=== PATIENT | male | born 1935 | race Caucasian/White ===

== ENCOUNTER 2017-04-29 17:32 | Emergency (ER) | payer MEDICARE, BC ==
[2017-04-29] MEDS ORDERED: NS 0.9% 1000 ML* 1,000 ML IV ONE (17:50)
[2017-04-29] MEDS ORDERED: Metoprolol Tartrate IV* 1 MG/ML 5 ML VIAL IV ONE (17:50)
[2017-04-29 18:06] LABS: Hematocrit 48 % (42-52); Hemoglobin 15.8 g/dl (14.0-18.0); Mean Corpuscular HGB Conc 33 g/dl (31-36); Mean Corpuscular Hemoglobin 29 pg (27-31); Mean Corpuscular Volume 90 fL (80-94); Mean Platelet Volume 9 um3 (7.4-10.4); Red Blood Count 5.38 10^6/ul (4.0-5.4); Red Cell Distribution Width 14 % (10.5-15); White Blood Count 6.5 10^3/ul (3.5-10.8)
[2017-04-29 18:22] LABS: Albumin 4.2 g/dL (3.2-5.2); BUN/Creatinine Ratio 19.3 (8-20); Calcium 9.4 mg/dL (8.6-10.3); EGFR African American 113.8 (>60); EGFR Non-African American 88.5 (>60); Globulin 2.7 g/dL (2-4); Magnesium 1.8 mg/dL (1.9-2.7); Potassium 4.2 mmol/L (3.5-5.0); Total Bilirubin 0.6 mg/dL (0.2-1.0); Total Protein 6.9 g/dL (6.4-8.9)
[2017-04-29 19:12] LABS: TSH (Thyroid Stimulating Horm) 0.95 mcIU/mL (0.34-5.60)
[2017-04-29] MEDS ORDERED: Adenosine* 3 MG/ML VIAL IV PUSH ONE (19:41)
--- NOTE | 2017-04-29 21:39 | ED ---
Ana Paula De La Cruz Thomas, scribed for Alex Rubio MD on 04/29/17 at 1747 . Palpitations / Dysrhythmia - HPI Summary HPI Summary: The pt is an 81 y/o M referred to the ED from his PCP Dr. Houston after testing at his office showed junctional tachycardia. Dr. Houston advised the patient to present to the ED after his vital signs and an EKG were taken. His HR was [address] Simmons office, and in the ED the pts HR is 133. The patient also complains of palpitations characterized as fluttering and jumping. He has been on metoprolol for several years. 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 The patient saw Lanre four days ago, who reduced his daily metoprolol dosage from 200mg to 150mg. Pt additionally c/o a queasy feeling. Pt denies any pains. PMHx: DM, HTN. PSHx: quadruple bypass (1996). SHx: rare drinking, no smoking, no illicit drugs. FHx: NM. Prior to arrival of the patient, I received a call from Dr. Houston regarding his incoming patient. - History of Current Complaint Chief Complaint: EDDysrhythmPalp Time Seen by Provider: 04/29/17 17:40 Hx Obtained From: Patient Onset/Duration: Sudden Onset, Lasting Hours - vitals and EKG were taken at Dr. Houston's office at 15:30, Still Present Character: Fluttering Aggravating: Nothing Alleviating: Nothing Related History: Similar Episode/Dx as - past episodes, unspecified - Allergy/Home Medications Allergies/Adverse Reactions: Allergies Allergy/AdvReac Type Severity Reaction Status Date / Time Codeine Allergy Tachycardia Verified 04/29/17 17:34 Latex Allergy Hives Verified 05/25/16 09:14 Pseudoephedrine Allergy Palpitation Verified 05/25/16 09:14 [From [facility]] s Home Medications: Home Medications Aspirin TAB* [Aspirin 325 MG TAB*] 325 mg PO DAILY 04/29/17 [History Confirmed 04/29/17] LoraTADine TAB(NF) [Claritin 10 MG TAB(NF)] 10 mg PO DAILY 04/29/17 [History Confirmed 04/29/17] Metoprolol Succinate XL TAB* [Toprol XL TAB*] 100 mg PO DAILY 04/29/17 [History Confirmed 04/29/17] Multivitamins ADULT w/MIN LIQ* [Theragran w/MINERALS LIQ*] 5 ml PO DAILY [History Confirmed 04/29/17] Moville-3 Fatty Acids (Nf) [Fish Oil (NF)] 1,000 mg PO DAILY 04/29/17 [History Confirmed 04/29/17] Ramipril CAP* [Altace CAP*] 2.5 mg PO BID 04/29/17 [History Confirmed 04/29/17] Simvastatin (NF) [Zocor (NF)] 40 mg PO DAILY 04/29/17 [History Confirmed ] PMH/Surg Hx/FS Hx/Imm Hx Previously Healthy: No Endocrine/Hematology History: Reports: Hx Diabetes Cardiovascular History: Reports: Hx Hypertension Denies: Hx Pacemaker/ICD History: Denies: Hx Renal Disease Musculoskeletal History: Denies: Hx Rheumatoid Arthritis - NEG BLOOD TEST Sensory History: Denies: Hx Hearing Aid Psychiatric History: Denies: Hx Panic Disorder - Cancer History Cancer Type, 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 CATARACT -[facility] Infectious Disease History: Denies: Traveled Outside the [place] in Last 30 Days - Family History Known Family History: Positive: Other - POS: [place] - Social History Alcohol Use: Rare Hx Substance Use: No Substance Use Type: Reports: None Hx Tobacco Use: No Smoking Status (MU): Never Smoked Tobacco Review of Systems Negative: Fever Positive: Palpitations - characterized as fluttering and jumping, Other - POS: junctional tachycardia (measured at Dr. Houston's office Negative: Other - NEG: any pain Positive: Other - POS: "queasy feeling" All Other Systems Reviewed And Are Negative: Yes Physical Exam Triage Information Reviewed: Yes Vital Signs On Initial Exam: Initial Vitals Temp Pulse Resp BP Pulse Ox 97.8 F 132 18 134/78 99 04/29/17 17:34 04/29/17 17:34 04/29/17 17:34 04/29/17 17:34 04/29/17 17:34 Vital Signs Reviewed: Yes Appearance: Positive: Well-Appearing, No Pain Distress Skin: Positive: Warm, Skin Color Reflects Adequate Perfusion Head/Face: Positive: Normal Head/Face Inspection Eyes: Positive: Normal ENT: Positive: Normal ENT inspection Neck: Positive: Supple, Nontender Respiratory/Lung Sounds: Positive: Clear to Auscultation, Breath Sounds Present Cardiovascular: Positive: Tachycardia Abdomen Description: Positive: Nontender, Soft Bowel Sounds: Positive: Present Musculoskeletal: Positive: Normal Neurological: Positive: Normal Psychiatric: Positive: Affect/Mood Appropriate Diagnostics - Vital Signs Vital Signs Temp Pulse Resp BP Pulse Ox 04/29/17 17:34 97.8 F 132 18 134/78 99 - Laboratory Lab Results: Lab Results 04/29/17 04/29/17 04/29/17 Range/Units 17:55 17:55 17:55 WBC 6.5 (3.5-10.8) 10^3/ul RBC 5.38 (4.0-5.4) 10^6/ul Hgb 15.8 (14.0-18.0) g/dl Hct 48 (42-52) % MCV 90 (80-94) fL MCH 29 (27-31) pg MCHC 33 (31-36) g/dl RDW 14 (10.5-15) % Plt Count 147 L (150-450) 10^3/ul MPV 9 (7.4-10.4) um3 Neut % (Auto) 39.7 (38-83) % Lymph % (Auto) 47.4 H (25-47) % [place] % (Auto) 9.0 (1-9) % Eos % (Auto) 3.8 (0-6) % Baso % (Auto) 0.1 (0-2) % Absolute Neuts (auto) 2.6 (1.5-7.7) 10^3/ul Absolute Lymphs (auto) 3.1 (1.0-4.8) 10^3/ul Absolute Monos (auto) 0.6 (0-0.8) 10^3/ul Absolute Eos (auto) 0.2 (0-0.6) 10^3/ul Absolute Basos (auto) 0 (0-0.2) 10^3/ul Absolute Nucleated RBC 0.01 10^3/ul Nucleated RBC % 0.2 INR (Anticoag Therapy) 0.97 (0.89-1.11) Sodium 126 L (133-145) mmol/L Potassium 4.2 (3.5-5.0) mmol/L Chloride 95 L (101-111) mmol/L Carbon Dioxide 25 (22-32) mmol/L Anion Gap 6 (2-11) mmol/L BUN 16 (6-24) mg/dL Creatinine 0.83 (0.67-1.17) mg/dL Est GFR ( Amer) 113.8 (>60) Est GFR (Non-Af Amer) 88.5 (>60) BUN/Creatinine Ratio 19.3 (8-20) Glucose 122 H (70-100) mg/dL Lactic Acid (0.5-2.0) mmol/L Calcium 9.4 (8.6-10.3) mg/dL Magnesium 1.8 L (1.9-2.7) mg/dL Total Bilirubin 0.60 (0.2-1.0) mg/dL AST 22 (13-39) U/L ALT 20 (7-52) U/L Alkaline Phosphatase 55 (34-104) U/L Troponin I 0.00 (<0.04) ng/mL Total Protein 6.9 (6.4-8.9) g/dL Albumin 4.2 (3.2-5.2) g/dL Globulin 2.7 (2-4) g/dL Albumin/Globulin Ratio 1.6 (1-3) TSH 0.95 (0.34-5.60) mcIU/mL 04/29/17 Range/Units 17:55 WBC (3.5-10.8) 10^3/ul RBC (4.0-5.4) 10^6/ul Hgb (14.0-18.0) g/dl Hct (42-52) % MCV (80-94) fL MCH (27-31) pg MCHC (31-36) g/dl RDW (10.5-15) % Plt Count (150-450) 10^3/ul MPV (7.4-10.4) um3 Neut % (Auto) (38-83) % Lymph % (Auto) (25-47) % [place] % (Auto) (1-9) % Eos % (Auto) (0-6) % Baso % (Auto) (0-2) % Absolute Neuts (auto) (1.5-7.7) 10^3/ul Absolute Lymphs (auto) (1.0-4.8) 10^3/ul Absolute Monos (auto) (0-0.8) 10^3/ul Absolute Eos (auto) (0-0.6) 10^3/ul Absolute Basos (auto) (0-0.2) 10^3/ul Absolute Nucleated RBC 10^3/ul Nucleated RBC % INR (Anticoag Therapy) (0.89-1.11) Sodium (133-145) mmol/L Potassium (3.5-5.0) mmol/L Chloride (101-111) mmol/L Carbon Dioxide (22-32) mmol/L Anion Gap (2-11) mmol/L BUN (6-24) mg/dL Creatinine (0.67-1.17) mg/dL Est GFR ( Amer) (>60) Est GFR (Non-Af Amer) (>60) BUN/Creatinine Ratio (8-20) Glucose (70-100) mg/dL Lactic Acid 1.1 (0.5-2.0) mmol/L Calcium (8.6-10.3) mg/dL Magnesium (1.9-2.7) mg/dL Total Bilirubin (0.2-1.0) mg/dL AST (13-39) U/L ALT (7-52) U/L Alkaline Phosphatase (34-104) U/L Troponin I (<0.04) ng/mL Total Protein (6.4-8.9) g/dL Albumin (3.2-5.2) g/dL Globulin (2-4) g/dL Albumin/Globulin Ratio (1-3) TSH (0.34-5.60) mcIU/mL Result Diagrams: 04/29/17 17:55 04/29/17 17:55 Lab Statement: Any lab studies that have been ordered have been reviewed, and results considered in the medical decision making process. - EKG 17:43 Cardiac Rate: Tachycardia - 127 BPM EKG Interpretation: 127 BPM. Junctional tachycardia. Nonspecific diffuse ST T- Wave changes. 19:58 Cardiac Rate: NL - 78 BPM EKG Interpretation: NSR. First degree block. Nonspecific changes consistent with 02/08/12. Course/Dx - Course Course Of Treatment: Mr. Culver was sent over by Dr. Houston for SVT that was relatively asymptomatic. His metoprolol had recently been cut back from 100 BID to 100 AM and 50 PM. He was hydrated and given 5 of IV lopressor and then adenocard which converted him to NSR with a 1st degree block. I am watching him a bit and will let him go if he remains in sinus. I recommended that he go back to 100 mgs BID and F/U with Dr. Patel. - Diagnoses Provider Diagnoses: SVT (supraventricular tachycardia) Discharge - Discharge Plan Condition: Stable Disposition: HOME Patient Education Materials: Supraventricular Tachycardia (ED) Referrals: Lalo De Dios MD [Medical Doctor] - 3 Days Additional Instructions: Follow up with Dr. De Dios. Go back to taking Metoprolol 100mg BID. The documentation as recorded by the Ana Paula valle Thomas accurately reflects the service I personally performed and the decisions made by me, Alex Rubio MD.
[2017-04-29 21:56] VITALS: BP 98/69
== END 2017-04-29 22:02 | disposition home or self-care (01) ==
LOC: ED 17:32
DX: I47.1 Supraventricular tachycardia (principal); R00.2 Palpitations
CPT/HCPCS: 36415; 80053; 83605; 83735; 84443; 84484; 85025; 85610; 93005; 96374; 96375; 99285; A9270-GY; J0153

== ENCOUNTER 2017-08-15 13:57 | Observation (INO) | payer MEDICARE, BC ==
[2017-08-15] MEDS ORDERED: ceFAZolin 1 GM VIAL(*) 1 GM in NS 0.9% 50 ML* 50 ML IVPB ONE (14:45)
[2017-08-15] MEDS ORDERED: ceFAZolin 2 GM PREMIX (*) 2 GM/50 ML BAG IVPB ONE (14:45)
[2017-08-15] MEDS ORDERED: Diazepam TAB(*) 5 MG PO ONE (14:45)
[2017-08-15] MEDS ORDERED: ceFAZolin VIAL 1 GM in NS *SYRINGE * * 10 ML ONE (15:00)
[2017-08-15] MEDS ORDERED: Naloxone* 0.4 MG/ML 1 ML VIAL ONE (15:17)
[2017-08-15] MEDS ORDERED: Midazolam* 1 MG/ML 5 ML VIAL (5 MG) ONE (15:17)
[2017-08-15] MEDS ORDERED: Flumazenil* 0.1 MG/ML 5 ML MDV ONE (15:17)
[2017-08-15] MEDS ORDERED: fentaNYL* 50 MCG/ML 2 ML VIAL (100 MCG VIAL) ONE (15:17)
[2017-08-15] MEDS ORDERED: Lidocaine 1% INJ* 10 MG/ML 30 ML SDV ONE (15:33)
[2017-08-15] MEDS ORDERED: Zolpidem TAB* 5 MG PO PRN (16:46)
--- NOTE | 2017-08-15 17:35 | RAD ---
INDICATION: Status post left upper chest cardiac pacemaker installation COMPARISON: Most recent comparison chest x-rays dated December 09, 2011 TECHNIQUE: Single AP portable view of the chest was obtained. FINDINGS: Image quality is compromised due to the relative inferiority of a portable chest x-ray. There is been interval placement of a left upper chest cardiac pacemaker with 2 leads overlying the heart. Surgical skin neri are seen overlying the pacemaker. Postoperative findings also include sternotomy wires. The heart and mediastinum exhibit normal size and contour. The lungs are grossly clear. There is no large pneumothorax. Visualized bones are normal for the patient's age. IMPRESSION: No radiographic evidence for acute cardiopulmonary abnormality on this portable chest x-ray status post cardiac pacemaker placement.
[2017-08-15] MEDS: Metoprolol Succinate XL TAB* 100 MG PO SCH (18:21)
[2017-08-15] MEDS: NS 0.9% 1000 ML* 1,000 ML IV SCH (18:21)
[2017-08-15] MEDS: Ramipril CAP* 2.5 MG PO SCH (21:49)
[2017-08-15] MEDS: Acetaminophen TAB* 325 MG PO PRN (21:49)
[2017-08-15] MEDS: ceFAZolin 1 GM VIAL(*) 1 GM in NS 0.9% 50 ML* 50 ML IVPB SCH (23:34)
[2017-08-16] MEDS ORDERED: CMCS Melatonin (NF) 3 MG TAB PO PRN (00:49)
[2017-08-16] MEDS: Acetaminophen TAB* 325 MG PO PRN (03:20)
[2017-08-16 07:00] VITALS: BP 108/44
[2017-08-16] MEDS: ceFAZolin 1 GM VIAL(*) 1 GM in NS 0.9% 50 ML* 50 ML IVPB SCH (07:30)
[2017-08-16] MEDS: Ramipril CAP* 2.5 MG PO SCH (07:31)
[2017-08-16] MEDS: Metoprolol Succinate XL TAB* 100 MG PO SCH (07:31)
--- NOTE | 2017-08-16 08:26 | RAD ---
HISTORY: Pacemaker placement COMPARISONS: August 15, 2017 VIEWS: 4: Frontal dual-energy and lateral views of the chest. FINDINGS: CARDIOMEDIASTINAL SILHOUETTE: The cardiomediastinal silhouette is normal. FRED: The fred are normal. PLEURA: The costophrenic angles are sharp. No pleural abnormalities are noted. LUNG PARENCHYMA: The lungs are clear. ABDOMEN: The upper abdomen is clear. There is no subphrenic gas. BONES AND SOFT TISSUES: The patient is status post median sternotomy. OTHER: A left-sided pacemaker is noted. IMPRESSION: NO ACTIVE CARDIOPULMONARY DISEASE.
[2017-08-16] MEDS ORDERED: Aspirin TAB* 325 MG PO SCH (09:00)
[2017-08-16] MEDS ORDERED: Atorvastatin* 20 MG TAB PO SCH (09:00)
[2017-08-16] MEDS: NS 0.9% 1000 ML* 1,000 ML IV SCH (10:16)
--- NOTE | 2017-08-16 22:21 | OP ---
DATE OF OPERATION: 08/15/17 - ROOM #452 DATE OF : 31 SURGEON: Henok Gage MD ANESTHESIA: Local anesthesia with conscious sedation. PRE-OP DIAGNOSIS: Tachybrady syndrome, 7-second pause. POST-OP DIAGNOSIS: Tachybrady syndrome, 7-second pause. OPERATIVE PROCEDURE: Dual-chamber pacemaker implantation. INDICATIONS: The patient is an 81-year-old gentleman with a history of supraventricular tachycardia and atrial tachy-cardia. The patient has undergone ablation therapy within the last couple of months. He was off all of his beta blockers. He had a Holter monitor, which showed episodes of tachycardia up to 140 beats per minute as well as 7-second pause. 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 ESTIMATED BLOOD LOSS: Nil. COMPLICATIONS: None. DESCRIPTION OF PROCEDURE: The patient was brought to the procedure room in a fasting state. Informed consent had been obtained prior to the procedure. All labs have been reviewed. The patient was placed supine on the procedure table. His left deltopectoral area was cleaned and draped in the usual fashion. 1% lidocaine was used for local anesthesia. Under ultrasound guidance, the axillary vein was entered by a modified Seldinger technique and a guidewire was placed. A second guidewire was placed under the same technique. A 3-cm incision was made in the pectoral area, blunt dissection was carried down to the pectoral fascia. A pocket was fashioned for the pacemaker. Over the first guidewire, a 7-Grenadian sheath introducer was placed through which a right ventricular lead was advanced to the RV apex. The right ventricular lead was a Medtronic, model 5076, serial #[id number] that had an R-wave sensitivity of 9.3 , impedance 1063 ohms, threshold 0.5 volts at 0.5 milliseconds. The ventricular lead was then sutured to the pectoral fascia using 0 silk. Over the second guidewire, a 7-Grenadian sheath introducer was placed through which a right atrial lead was advanced to the high right atrium. The right atrial lead was a Medtronic model 5076, serial #[id number], had a P-wave sensitivity of 2.3 , impedance 650 ohms, threshold 1.9 volts at 0.5 milliseconds (at the end of the case, the atrial threshold was 1 volt at 0.5 milliseconds). The atrial lead was then sutured to the pectoral fascia using 0 silk. The pocket was flushed with antibiotic-infused normal saline. A generator was attached appropriately to the atrial and ventricular lead. The generator was a Antavo model A2DR01, serial #[id number]. The device was placed into the pocket. The surgical incision was closed in 3 layers. The patient tolerated the procedure well, no complications. [id number]/[facility] #: [id number] [facility] MEDICAL CENTERIsabella
--- NOTE | 2017-08-17 00:01 | DS ---
CC: Lalo De Dios MD; Madhu Houston MD * DISCHARGE SUMMARY: DATE OF ADMISSION: 08/15/17 DATE OF DISCHARGE: 08/16/17 INDICATION FOR ADMISSION: Dual chamber pacemaker implantation. Please see dictated admission history and physical from SHYLA Gunderson. HISTORY OF PRESENT ILLNESS: The patient is an 81-year-old gentleman with a history of coronary artery disease, coronary artery bypass surgery in 1995. At that time, he had a single vessel bypass to his LAD as well as stenting to his right coronary artery. He also has a history of atrial tachycardia and SVT. He underwent ablation of his SVT back in June. The patient was still feeling episodes of palpitations and lightheadedness. A Holter monitor showed episodes of tachycardia up to 140 beats a minute as well as a 7-second pause. Sick sinus syndrome was diagnosed and pacemaker was recommended. SUMMARY OF HOSPITAL COURSE: The patient underwent dual chamber pacemaker implantation without incident. This occurred yesterday afternoon. He has a Medtronic model A2DR01 dual chamber pacemaker. The patient was observed overnight. The patient had no complications overnight. His chest x-ray this morning was stable. Interrogation of his ICD demonstrates atrial and ventricular leads are functioning normally. PHYSICAL EXAMINATION: On physical exam, lungs are clear to auscultation. Cardiac exam: S1 and S2 without any murmurs, rubs, or gallops. Extremities show no edema. His pacemaker site is healing well. There is no other erythema. There is no hematoma. There is no ecchymosis. A new dressing was applied. LABORATORY DATA: Laboratory studies were unremarkable. Again, chest x-ray showed normal placement of the dual chamber pacemaker. No evidence of pneumothorax. DISCHARGE MEDICATIONS: 1. Metoprolol ER 100 mg a day, this will be restarted at his usual dose. 2. Simvastatin 40 mg a day. 3. Ramipril 2.5 mg b.i.d. 4. Fish oil tablets. 5. Multivitamin a day. 6. Hydroxychloroquine 200 mg b.i.d. 7. Omeprazole 20 mg a day. 8. Aspirin 81 mg a day. 9. Calcium carbonate/vitamin D 600/400 daily. 10. Loratadine 10 mg as needed. ALLERGIES: He has no allergies. PLAN: The patient will be started on Keflex 250 mg 3 times a day for 3 days. FOLLOWUP: The patient will follow up with me in 1 week for wound check and then continue to follow up with Dr. De Dios. [id number]/[facility] #: [id number] JACQUELINE
== END 2017-08-16 14:00 | disposition home or self-care (01) ==
LOC: CHICATH 13:57 → MEDTELE 16:31
PROVIDERS: ADMIT Specialist; ATTEND Specialist
DX: I49.5 Sick sinus syndrome (principal); I25.10 Atherosclerotic heart disease of native coronary artery without angina pectoris; Z95.1 Presence of aortocoronary bypass graft; I10 Essential (primary) hypertension; E78.5 Hyperlipidemia, unspecified
CPT/HCPCS: 33208; 71010; 71020; 93005; 99156; 99157; A9270-GY; C1785; C1898; G0378; J0690; J2250; J2310; J3010

== ENCOUNTER 2019-04-06 21:58 | Emergency (ER) | payer MEDICARE, BC ==
--- NOTE | 2019-04-06 22:41 | ED ---
Lower Extremity - HPI Summary HPI Summary: This patient is a 83 year old female presenting to [facility] with a chief complaint of traumatic left foot pain an hour ago. He states he was moving his computer when the monitor accidentally fell from the desk landing on the top of his left foot. He also notes left knee pain which he did not initially notice. He states there is bruising and swelling on the area. He rates his pain 4/10 in severity. - History of Current Complaint Chief Complaint: EDExtremityLower Stated Complaint: LT FT INJURY PER PT Time Seen by Provider: 04/06/19 22:35 Hx Obtained From: Patient Mechanism Of Injury: Direct Blow Pain Intensity: 4 Pain Scale Used: 0-10 Numeric Timing: Constant Location: Is Discrete @ - left foot Associated Signs And Symptoms: Positive: Swelling, Bruising, Knee Pain - Allergies/Home Medications Allergies/Adverse Reactions: Allergies Allergy/AdvReac Type Severity Reaction Status Date / Time codeine Allergy Tachycardia Verified 04/06/19 22:06 latex Allergy Hives Verified 04/06/19 22:06 pseudoephedrine Allergy Palpitation Verified 04/06/19 22:06 s Home Medications: Home Medications Aspirin 81 mg PO DAILY 04/06/19 [History Confirmed 04/06/19] Hydroxychloroquine TAB* [Plaquenil TAB*] 200 mg PO DAILY 04/06/19 [History Confirmed 04/06/19] PMH/Surg Hx/FS Hx/Imm Hx Endocrine/Hematology History: Reports: Hx Diabetes Cardiovascular History: Reports: Hx Hypertension Denies: Hx Angina, Hx Coronary Artery Disease, Hx Pacemaker/ICD, Hx Valvular Heart Disease Respiratory History: Denies: Hx Asthma, Hx Chronic Obstructive Pulmonary Disease (COPD) History: Denies: Hx Renal Disease Musculoskeletal History: Denies: Hx Rheumatoid Arthritis - NEG BLOOD TEST, Hx Osteoporosis Sensory History: Reports: Hx Cataracts, Hx Contacts or Glasses Denies: Hx Hearing Aid Opthamlomology History: Reports: Hx Cataracts, Hx Contacts or Glasses Psychiatric History: Denies: Hx Panic Disorder - Cancer History Cancer Type, 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 CATARACT -[facility]. PACEMAKER. CARDIAC ABLATION 2017 Infectious Disease History: No Infectious Disease History: Denies: Traveled Outside the [place] in Last 30 Days - Family History Known Family History: Positive: Other - POS: [place] - Social History Alcohol Use: None Hx Substance Use: No Substance Use Type: Reports: None Hx Tobacco Use: No Smoking Status (MU): Never Smoked Tobacco Review of Systems Negative: Fever Positive: Other - Left foot knee pain, ecchymosis, swelling. All Other Systems Reviewed And Are Negative: Yes Physical Exam - Summary Physical Exam Summary: Appearance: Well-appearing, Well-nourished, lying in bed comfortable Skin: Warm, dry, no obvious rash Eyes: sclera anicteric, no conjunctival pallor ENT: mucous membranes moist Neck: deferred Respiratory: No signs of respiratory distress Cardiovascular: Appears well perfused, pulses are nml Abdomen: deferred Musculoskeletal: Moving all 4 extremities without obvious discomfort. Ecchymosis overlying the left thigh above the knee. Ecchymosis and swelling over the first left metatarsal with tenderness. Neurological: Awake and alert, mentation is normal, speech is fluent and appropriate Psychiatric: affect is normal, does not appear anxious or depressed Triage Information Reviewed: Yes Vital Signs On Initial Exam: Initial Vitals Temp Pulse Resp BP Pulse Ox 97.9 F 73 18 149/72 97 04/06/19 22:00 04/06/19 22:00 04/06/19 22:00 04/06/19 22:00 04/06/19 22:00 Vital Signs Reviewed: Yes Diagnostics - Vital Signs Vital Signs Temp Pulse Resp BP Pulse Ox 04/06/19 22:00 97.9 F 73 18 149/72 97 - Laboratory Lab Statement: Any lab studies that have been ordered have been reviewed, and results considered in the medical decision making process. - Radiology Left Foot XR Radiology Interpretation Completed By: ED Physician Summary of Radiographic Findings: No fractures. Pending official radiologist report. Lower Extremity Course/Dx - Course Course Of Treatment: This patient is a 83 year old female presenting to [facility] with a chief complaint of traumatic left foot pain. Left foot XR was unremarkable. A plan for discharge was discussed with the patient and he was agreeable with this plan. - Diagnoses Provider Diagnoses: Foot contusion Discharge - Sign-Out/Discharge Documenting (check all that apply): Patient Departure - Discharge Patient Received Moderate/Deep Sedation with Procedure: No - Discharge Plan Condition: Good Disposition: HOME Patient Education Materials: Foot Contusion (ED) Referrals: Madhu Houston MD [Primary Care Provider] - If Needed - Billing Disposition and Condition Condition: GOOD Disposition: Home - Attestation Statements Document Initiated by Ryley: Yes Documenting Scribe: Donnie Larsen Provider For Whom Ryley is Documenting (Include Credential): Alex Klein MD Scribe Attestation: Donnie De La Cruz scribed for Alex Klein MD on 04/07/19 at 0433. Scribe Documentation Reviewed: Yes Provider Attestation: The documentation as recorded by the Donnie valle accurately reflects the service I personally performed and the decisions made by me, Alex Klein MD Status of Scribe Document: Viewed
[2019-04-06 23:55] VITALS: BP 129/61
== END 2019-04-06 23:54 | disposition home or self-care (01) ==
LOC: ED 21:58
DX: S90.32XA Contusion of left foot, initial encounter (principal); R60.0 Localized edema; M25.569 Pain in unspecified knee; E11.9 Type 2 diabetes mellitus without complications; W20.8XXA Other cause of strike by thrown, projected or falling object, initial encounter; Y92.9 Unspecified place or not applicable; Z79.82 Long term (current) use of aspirin
CPT/HCPCS: 99282

== ENCOUNTER 2019-11-27 07:27 | Inpatient (IN) | payer MEDICARE, BC ==
--- OUTSIDE RECORDS SUMMARY | 2019-11-27 07:36 | XMS REPORT | Continuity of Care Document ---
:1935 External Reference #:[id number] Author Name Lanette Morris M.D. (transmitted by agent of provider Jessica Diego) Address [address] [place] [id number] Care Team Providers Name Role Phone Madhu Houston MD - Endocrinology, Care Team Information Event Services Manager [phone] Diabetes & Metabolism Problems Active Problems Provider Date Multiple joint pain Renato Russell M.D. Onset: 06/12/2013 Chronic lymphoid leukemia, disease Renato Russell M.D. Onset: 06/12/2013 Chronic ischemic heart disease Lalo De Dios M.D., [facility] Onset: 2012 Essential hypertension Lalo De Dios M.D., [facility] Onset: 09/18/2013 Hyperlipidemia Lalo De Dios M.D., [facility] Onset: 09/18/2013 Taking medication Renato Russell M.D. Onset: 05/14/2014 Rheumatoid arthritis Renato Russell M.D. 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 Onset: 11/29/2014 Tachycardia Lalo De Dios M.D., [facility] Onset: 12/25/2014 Degenerative joint disease of hand Renato Russell M.D. Onset: 03/21/2015 Paroxysmal supraventricular Lalo De Dios M.D., [facility] Onset: 05/24/2017 tachycardia Cardiac pacemaker in situ Lalo De Dios M.D., [facility] Onset: 08/24/2017 Dyspnea Lalo De Dios M.D., [facility] Onset: 10/06/2017 Chest pain Lalo De Dios M.D., [facility] Onset: 10/06/2017 Obstructive sleep apnea syndrome Silvana Pereira DNP, RN, Onset: 01/02/2018 SPECIAL NEEDS CAREGIVER- Edema Lalo De Dios M.D., [facility] Onset: 02/13/2018 Arteriosclerosis of coronary artery Lanette Morris M.D. 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 0.025% Pads Nitrostat one sl q5min up 25tabs Lalo De Dios, 01/12/2013 0.4mg Tablets to 3 doses prn, M.DAlejandro, FACC, Sub if no relief FSCAI after 3 call 911 Metoprolol Succinate 1/2 by mouth 180tabs Lalo De Dios, 11/14/2012 ER daily M.SHELLIE JaimesC, 100mg Tablets ER FSCAI 24HR Simvastatin 1 tab by mouth 90tabs Lalo De Dios, 11/14/2012 40mg every day M.DAlejandro, FACC, Tablets FSCAI Ramipril 2 by mouth in 270caps Lanette Morris, 09/07/2012 2.5mg Capsules morning, one by M.D. mouth in evening Calcium 600+D 1 by mouth daily 60tabs Unknown [id number] Tablets Acetaminophen 1 by mouth twice Unknown 500mg a day as needed Capsules Triamcinolone apply thin film Unknown Acetonide twice daily prn 0.1% Cream Loratadine 1 by mouth as Unknown 10mg Tablets needed Aspirin Ec Low Dose 1 / day Unknown 81mg Tablets [place]-3 Fish Oil take 2 tab by Unknown 1000mg mouth daily. Capsules Multi For Him 50+ once a day Unknown Tablets Alendronate Sodium 1 by mouth weekly Unknown 70mg 1 hour before Tablets breakfast with a full glass of water sitting up Medications Administered in Office Medication SIG Qnty Indications Ordering Provider Date Inj, Regadenoson, 0.1 MG Arik Thomson, DO FAC 05/15/2019 Injection Technetium TC 99M Arik Thomson, DO [facility] 05/15/2019 Tetrofosmin, Per Unit Dose Up To 40 Millicuries Injection Technetium TC 99M Arik Thomson, DO [facility] 05/15/2019 Tetrofosmin, Per Unit Dose Up To 40 Millicuries Injection Immunizations CPT Code Status Date Vaccine Lot # [id number] Given 06/27/2017 Influenza Virus Vaccine, Quadrivalent, Split, Preservative Free Vital Signs Date Vital Result Comment 11/13/2019 11:06am Height 66 inches 5'6" Weight 149.00 lb without shoes Heart Rate 75 /min BP Systolic Sitting 110 mmHg LA BP Diastolic Sitting 72 mmHg LA BP Systolic Standing 119 mmHg LA BP Diastolic Standing 70 mmHg LA BMI (Body Mass Index) 24.0 kg/m2 Ejection Fraction 45-50% Echo 06/20/19 07/31/2019 2:40pm Height 66 inches 5'6" Weight 148.00 lb Heart Rate 68 /min BP Systolic 122 mmHg BP Diastolic 72 mmHg O2 % BldC Oximetry 99 % BMI (Body Mass Index) 23.9 kg/m2 Results Description No Information Available Procedures Date Code Description Status 11/13/2019 22859 EKG Tracing & Interpretation Completed 08/08/2019 70642 Icd Eval Sing,Dual,Multi Lead Remote Recpt Transm Tech Completed Rev Tech S 08/08/2019 73744 Icd Eval Sing,Dual,Multi Lead Remote Recpt Transm Tech Completed Rev Tech S 08/08/2019 11457 Pacemaker Check Remote Up To 90Days Completed Single,Dual,Multiple Lead 08/08/2019 90464 Pacemaker Check Remote Up To 90Days Completed Single,Dual,Multiple Lead 06/20/2019 66457 Echocardiogram, Limited Study Completed 05/21/2019 818803392 Diabetic Retinal Eye Exam Completed 05/15/2019 20809 Stress Test Completed 05/15/2019 43351 Myocardial Perfusion Imaging Tomographic (Spect) Completed Multiple Studies 03/28/2019 237160256 Bone Mineral Density Test Completed Medical Devices Description No Information Available Encounters Type Date Location Provider Dx Diagnosis Office Visit 11/13/2019 [facility] Lanette Morris 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 11/13/2019 Z95.0 Presence of cardiac pacemaker Lanette Morris M.D. 11/13/2019 I25.810 Atherosclerosis of coronary artery Lanette Morris M.D. bypass graft(s) without angina pectoris 11/13/2019 I25.5 Ischemic cardiomyopathy Lanette Morris M.D. 11/13/2019 I10 Essential (primary) hypertension Lanette Morris M.D. 11/13/2019 E78.5 Hyperlipidemia, unspecified Lanette Morris M.D. 11/13/2019 I47.1 Supraventricular tachycardia Lanette Morris M.D. 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 08/08/2019 Z95.0 Presence of cardiac pacemaker Remote Device Checks 08/08/2019 I44.0 Atrioventricular block, first degree Lanette Morris M.D. 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 first carpometacarpal jo ann 07/25/2019 D69.6 Thrombocytopenia, unspecified Ceferino Funez M.D. 07/25/2019 Z79.899 Other intermediate frame tender (current) drug Ceferino Funez M.D. therapy 07/25/2019 M51.36 Other intervertebral disc Ceferino Funez M.D. degeneration, lumbar region 06/20/2019 I25.10 Atherosclerotic heart disease of Lanette Morris M.D. [place] coronary artery without angina pectoris 05/22/2019 I25.5 Ischemic cardiomyopathy Mavis Larson NP 05/22/2019 I10 Essential (primary) hypertension Mavis Larson NP 05/22/2019 R94.39 Abnormal result of other Mavis Larson NP cardiovascular function study 05/22/2019 I25.10 Atherosclerotic heart disease of Mavis Larson NP [place] coronary artery without angina pectoris 05/15/2019 R06.00 Dyspnea, unspecified Lanette Morris M.D. 05/15/2019 R06.00 Dyspnea, unspecified Arik Thomson DO [facility] Plan of Treatment Future Appointment(s):08/05/2020 11:15 am - Silvana Pereira DNP, RN, SPECIAL NEEDS CAREGIVER-BC at [facility]01/28/2020 1:00 pm - Ceferino Funez M.D. at [facility]11/13/2019 - Lanette Morris M.D.I49.5 Sick sinus qzbernsoC26.0 Presence of cardiac pacemakerComments:Interrogation 11/06/2019 showed normal function, no sustained rhythm issues.Follow up:Pacer check 6 months with OV or METAL FURNITURE ASSEMBLER.I25.810 Atherosclerosis of coronary artery bypass graft (s) without angina pectorisComments:ECG is stable.I25.5 Ischemic cardiomyopathyComments:Your heart strength is low, no evidence of fluid build up todayContinue Metoprolol and Ramipril.Follow up:Provide patient with information on Entresto (nurses should have in sample cabinet).Recommendations: Entresto is a newer medication we could convert you too (to replace Ramipril) .I10 Essential (primary) hypertensionComments:Well fiwzyorzxrZ86.5 Hyperlipidemia, unspecifiedComments:Good control on Simvastatin.I47.1 Supraventricular tachycardiaComments:None seen, continue metoprolol. Functional Status Description No Information Available Mental Status Description No Information Available Referrals Refer to Reason for Referral Status Appt Date Betzy Brice MD Consider an LAURA and/or facet joint injection for Sent lower back pain with sciatica [address] [place] [phone]
[2019-11-27 07:41] LABS: ABS Basophils 0.1 10^3/ul (0-0.2); ABS Eosinophils 0.1 10^3/ul (0-0.6); ABS Lymphocytes 2.3 10^3/ul (1.0-4.8); ABS Monocytes 0.5 10^3/ul (0-0.8); ABS Neutrophils 2.1 10^3/ul (1.5-7.7); Eosinophil % 2.4 %; Hematocrit 41 % (42-52); Hemoglobin 13.9 g/dL (14.0-18.0); Lymphocyte % 45.6 %; Mean Corpuscular HGB Conc 34 g/dL (31-36); Mean Corpuscular Hemoglobin 31 pg (27-31); Mean Corpuscular Volume 91 fL (80-94); Mean Platelet Volume 8.1 fL (7.4-10.4); Platelet Count 148 10^3/uL (150-450); Red Blood Count 4.55 10^6 /uL (4.18-5.48); Red Cell Distribution Width 14 % (10-15); White Blood Count 5.1 10^3/uL (3.5-10.8)
--- NOTE | 2019-11-27 07:41 | ED ---
HPI Chest Pain - HPI Summary HPI Summary: Patient is an 83 y/o M presenting to the ED via EMS for a chief complaint of chest pain that began at approximately 04:30 on 11/27/19. EMS states the patient 's chest pain began upon waking up and was initially midsternal. Currently, the chest pain is diffuse. The patient rates the initial chest pain as 4/10 in severity, but currently rates his pain as a 2/10 in severity. He took 3 tabs of nitroglycerin and 2 tabs of 325 mg aspirin for the chest pain with some relief. Patient denies shortness of breath. PMHx is significant for AR. He denies that his current chest pain feels similar to his prior AR. PSHx is significant for bypass in 1996 and stent placement. - History of Current Complaint Chief Complaint: EDChestPainROMI Hx Obtained From: Patient, EMS Onset/Duration: Atraumatic, Still Present Time of Onset: 04:30 Timing: Constant Initial Severity: Moderate Current Severity: Mild Pain Intensity: 3 Pain Scale Used: 0-10 Numeric Chest Pain Location: Mid Sternal Chest Pain Radiates: No Aggravating Factor(s): Nothing Alleviating Factor(s): NTG 123, OTC Meds - Aspirin Associated Signs and Symptoms: Positive: Chest Pain. Negative: Shortness of Breath - Additional Pertinent History Primary Care Physician: [id number] - Allergy/Home Medications Allergies/Adverse Reactions: Allergies Allergy/AdvReac Type Severity Reaction Status Date / Time codeine Allergy Tachycardia Verified 11/27/19 07:36 latex Allergy Hives Verified 11/27/19 07:36 pseudoephedrine Allergy Palpitation Verified 11/27/19 07:36 s Home Medications: Home Medications Metoprolol Succinate XL TAB* [Toprol XL TAB*] 50 mg PO DAILY 04/29/17 [History Confirmed 11/27/19] [place]-3 Fatty Acids (Nf) [Fish Oil (NF)] 1,000 mg PO BID 04/29/17 [History Confirmed 11/27/19] Ramipril CAP* [Altace CAP*] 2.5 mg PO BEDTIME 04/29/17 [History Confirmed ] Simvastatin (NF) [Zocor (NF)] 20 mg PO DAILY 04/29/17 [History Confirmed ] Aspirin 81 mg PO DAILY 04/06/19 [History Confirmed 11/27/19] Alendronate (NF) [Fosamax (NF)] 70 mg PO WEEKLY 11/27/19 [History Confirmed 12/13] Calcium Carb, Citrate/Vit D3 [Calcium + D3 ER Tablet] 1 each PO DAILY 11/27/19 [ History Confirmed 11/27/19] Multivitamins/Minerals TAB* [Theragran/minerals TAB*] 1 tab PO DAILY 11/27/19 [ History Confirmed 11/27/19] Nitroglycerin TAB 0.4 MG* 0.4 mg SL Q5M PRN 11/27/19 [History Confirmed 11/27/19 ] Ramipril CAP* [Altace CAP*] 5 mg PO QAM 11/27/19 [History Confirmed 11/27/19] Triamcinolone 0.1% CREAM(NF) [Kenalog 0.1% Cream (NF)] 1 applic TOPICAL BEDTIME PRN 11/27/19 [History Confirmed 11/27/19] PMH/Surg Hx/FS Hx/Imm Hx Previously Healthy: Yes Endocrine/Hematology History: Reports: Hx Diabetes Denies: Hx Thyroid Disease Cardiovascular History: Reports: Hx Hypertension, Hx Myocardial Infarction Denies: Hx Angina, Hx Coronary Artery Disease, Hx Pacemaker/ICD, Hx Valvular Heart Disease Respiratory History: Reports: Hx Sleep Apnea - C Pap Denies: Hx Asthma, Hx Chronic Obstructive Pulmonary Disease (COPD) GI History: Denies: Hx Ulcer History: Denies: Hx Renal Disease Musculoskeletal History: Reports: Hx Arthritis, Hx Back Problems Denies: Hx Rheumatoid Arthritis - NEG BLOOD TEST, Hx Osteoporosis Sensory History: Reports: Hx Cataracts, Hx Contacts or Glasses Denies: Hx Legally Blind, Hx Deafness, Hx Hearing Aid Opthamlomology History: Reports: Hx Cataracts, Hx Contacts or Glasses Denies: Hx Legally Blind EENT History: Denies: Hx Deafness Neurological History: Denies: Hx Migraine, Hx Seizures, Hx Transient Ischemic Attacks (TIA) Psychiatric History: Denies: Hx Anxiety, Hx Depression, Hx Panic Disorder - Cancer History Cancer Type, 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 CATARACT -JAMARI. PACEMAKER. CARDIAC ABLATION 2017 Infectious Disease History: No Infectious Disease History: Denies: Hx Hepatitis, Hx Human Immunodeficiency Virus (HIV), Hx Tuberculosis - Family History Known Family History: Positive: Cardiac Disease, Other - POS: AR - Social History Occupation: Retired Lives: With Family Alcohol Use: None Hx Substance Use: No Substance Use Type: Reports: None Hx Tobacco Use: No Smoking Status (MU): Never Smoked Tobacco Review of Systems Positive: Chest Pain - Midsternal, now diffuse Negative: Shortness Of Breath All Other Systems Reviewed And Are Negative: Yes Physical Exam - Summary Physical Exam Summary: Constitutional: Well-developed, Well-nourished, Alert. (-) Distressed Skin: Warm, Dry HENT: Normocephalic; Atraumatic Eyes: Conjunctiva normal Neck: Musculoskeletal ROM normal neck. (-) JVD, (-) Stridor, (-) Nuchal rigidity Cardio: Rhythm regular, rate normal, Heart sounds normal; Intact distal pulses; Radial pulses are 2+ and symmetric. (-) Murmur Pulmonary/Chest wall: Effort normal. (-) Respiratory distress, (-) Wheezes, (-) Rales Abd: Soft, (-) tenderness, (-) Distension, (-) Guarding, (-) Rebound Musculoskeletal: (-) Edema Lymph: (-) Cervical adenopathy Neuro: Alert, Oriented x3 Psych: Mood and affect Normal Triage Information Reviewed: Yes Vital Signs Reviewed: Yes Procedures - Sedation Patient Received Moderate/Deep Sedation with Procedure: No Diagnostics - Laboratory Result Diagrams: 11/27/19 07:30 11/27/19 07:30 Lab Statement: Any lab studies that have been ordered have been reviewed, and results considered in the medical decision making process. - Radiology Chest X-ray Radiology Interpretation Completed By: Radiologist Summary of Radiographic Findings: Chest X-ray IMPRESSION: NO ACTIVE CARDIOPULMONARY DISEASE. Reviewed by Dr. Hester. - EKG 07:27 Cardiac Rate: NL - 76 BPM EKG Rhythm: Sinus Rhythm ST Segment: Other Ectopy: None EKG Comparison: No Significant Change - From 2017 Summary of EKG Findings: An EKG at 07:27 reveals normal sinus rhythm with 76 BPM , ST elevations in lead II, III, and aVF, ST depression in aVL concerning for inferior STEMI, nml axis, nml intervals. No acute changes. When compared to EKG in 2017, there is no significant change. ED physician has reviewed and interpreted this EKG. Chest Pain Course/Dx - Course Course Of Treatment: 83 y/o male w extensive cardiac history including bypass, multiple stents fall by Dr. De Dios, presenting with chest pain. - VS: initially low BP likely in the setting of recent nitroglycerin. - blood pressure improved in ED, EKG here looks similar to EKG in [address]ations in the inferior leads and depression in aVL. Given lack of EKG changes, STEMI alert was called off. Chest pain improving. Troponin normal 1. Patient received aspirin. [facility] - Diagnoses Provider Diagnoses: Chest pain During the Visit The Following Alert/Code Occurred: STEMI - AT 07:21, STEMI CALLED IN THE ED ROOM 11. ETA IS 3 MINUTES. PATIENT ARRIVAL TO [facility] AT 07:23. DR. HESTER PRESENT TO ASSESS THE PATIENT AT 07:24. AT 07:37, DR.MARCIS SINHA DOES NOT BELIEVE THE PATIENT HAS A STEMI. AT 07:37, STEMI CALL CANCELLED THE PATIENT IS NOT HAVING A STEMI. - Provider Notifications Discussed Care Of Patient With: Ida Sinha - AT 07:37, DR.MARCIS SINHA DOES NOT BELIEVE THE PATIENT HAS A STEMI when comparing EKGs. At 08:44, Dr. Betsy Walker reviewed the patients case and agrees to admit the patient to [facility] with a diagnosis of chest pain. Time Discussed With Above Provider: 07:37 Instructed by Provider To: Admit As Inpatient - Critical Care Time Critical Care Time: 30-74 min - Upon my evaluation, this patient had a high probability of imminent or life-threatening deterioration due to chest pain which required my direct attention, intervention, and personal management. I have personally provided 35 minutes of critical care time exclusive of time spent on separately billable procedures. Time includes review of laboratory data , radiology results, discussion with consultants, and monitoring for potential decompensation. Interventions were performed as documented above. Discharge ED - Sign-Out/Discharge Documenting (check all that apply): Patient Departure - Admit - Discharge Plan Condition: Stable Disposition: ADMITTED TO [facility] - Billing Disposition and Condition Condition: STABLE Disposition: Admitted to [facility] - Attestation Statements Document Initiated by Scribe: Yes Documenting Scribe: Arlen Guzman Provider For Whom Abrahamibe is Documenting (Include Credential): Nicki Hester MD Scribe Attestation: IArlen, scribed for Nicki Hester MD on 11/27/19 at 1411. Scribe Documentation Reviewed: Yes Provider Attestation: The documentation as recorded by the taraeArlen accurately reflects the service I personally performed and the decisions made by , Nicki Hester MD Status of Scribe Document: Viewed
[2019-11-27 07:56] LABS: Activated Partial Thrombo Time 30.2 seconds (26.0-38.0); INR 1.08 (0.82-1.09)
[2019-11-27 07:58] LABS: Albumin 3.8 g/dL (3.2-5.2); Albumin/Globulin Ratio 1.7 (1-3); BUN/Creatinine Ratio 24.1 (8-20); Calcium 9.8 mg/dL (8.6-10.3); EGFR African American 106.5 (>60); EGFR Non-African American 88.1 (>60); Globulin 2.2 g/dL (2-4); Total Bilirubin 0.6 mg/dL (0.2-1.0)
[2019-11-27 08:01] LABS: Troponin I 0.01 ng/mL (<0.03)
[2019-11-27 08:03] LABS: CKMB ng/mL 1.9 ng/mL (0.6-6.3)
[2019-11-27 08:28] LABS: Potassium 4.2 mmol/L (3.5-5.0)
[2019-11-27] MEDS ORDERED: Enoxaparin(*) 40 MG/0.4 ML SYR SUBCUT SCH (11:00)
[2019-11-27 11:09] LABS: Troponin I 0.07 ng/mL (<0.03)
[2019-11-27 12:20] LABS: Magnesium 1.7 mg/dL (1.9-2.7)
[2019-11-27] MEDS ORDERED: Nitro 2% OINT* (Nitroglycerin) 1 INCH/PAK PAK TOPICAL ONE ×3 (12:39→23:30)
--- NOTE | 2019-11-27 14:37 | HP ---
CC: Dr. Houston; Dr. Morris * HISTORY AND PHYSICAL: DATE OF ADMISSION: 11/27/19 PROVIDER: Anushka Landry NP PRIMARY CARE PROVIDER: Dr. Houston. ATTENDING PHYSICIAN WHILE IN THE HOSPITAL: Dr. Betsy Walker * (dictated by Anushka Landry NP). CHIEF COMPLAINT: Chest pain. HISTORY OF PRESENT ILLNESS: Mr. Culver is an 83-year-old male with a past medical history significant for coronary artery disease; cardiomyopathy; history of an ND, status post stent, CABG, and pacemaker; history of hyperlipidemia; hypertension; history of SVT, who presented to the emergency room with complaints of chest pain that radiated to his jaw briefly. The patient reports that he started noticing chest pain approximately 4 a.m. He woke at 4:30 again with the chest pain. He reports that the chest pain was in the center of his chest, it was diffuse, radiated about 4 to 5 inches from the center of his chest. He describes it as a pain. He does report that he became diaphoretic with this chest pain and has some slight shortness of breath. He reports that nothing made it worse. He does report that at home, he took an aspirin total of 650 mg. He did take nitro 0.4 sublingual x3. He reports there is no change in his chest pain after the first 2 nitro. On the third nitro, he does report that his pain went from a 4-5 to 2 to 3. Due to this chest pain, the patient called EMS and was brought into the emergency room via EMS. The patient was initially a STEMI alert. He was seen in the emergency room by Dr. Sandoval and EKGs were compared and the patient had no acute changes in his EKG from prior, so STEMI was cancelled. While in the emergency room, the patient had routine lab work drawn. His initial troponin was negative at 0.01 and his chest pain fully dissipated during the emergency room. At the time of my evaluation, the patient does report that his chest pain is essentially at a 1 and he reports it is going away. The patient does report that his shortness of breath has resolved. He denies any recent fevers, unintended weight loss. He does report chest pain. No swelling or edema noted to extremities. No cough or hemoptysis. He does report some slight shortness of breath associated with his chest pain. No nausea, vomiting, diarrhea, abdominal pain, hematuria, dysuria. He denies any focal weakness or sensory loss. He denies any visual complaints, dysphagia, arthralgias, myalgias, rashes, lesions, open sores, psychosis, or anxiety. Due to the patient's chest pain and history of coronary artery disease, Hospital Medicine was asked to see and evaluate him for admission. PAST MEDICAL HISTORY: Significant for: 1. Coronary artery disease. 2. Cardiomyopathy. 3. ND, status post stent placement, last in 2010, CABG in 1996. 4. Hyperlipidemia. 5. Hypertension. 6. History of paroxysmal ventricular tachycardia, status post pacemaker for tachybrady syndrome. 7. Cardiomyopathy. PAST SURGICAL HISTORY: 1. Ablation in May 2017. 2. CABG in 1996, status post pacemaker in 2016, status post stent placement in the RCA in 2010. HOME MEDICATIONS: Include: 1. Aspirin 81 mg p.o. daily. 2. Ramipril 5 mg in the morning, 2.5 mg at bedtime. 3. Simvastatin 20 mg p.o. daily. 4. Metoprolol ER 50 mg p.o. daily. 5. Fosamax 70 mg on Sundays. 6. Loratadine 10 mg p.r.n. 7. Nitro sublingual 0.4 mg as needed for chest pain. ALLERGIES: CODEINE, SUDAFED and LATEX. FAMILY HISTORY: Father had an ND. Sister and 2 brothers with heart disease. Brother and sister all with diabetes. No reported history of cancer. SOCIAL HISTORY: He denies any tobacco, but he reports rare alcohol use. No illicit drug use. He is . Surrogate decision maker in the event he is unable to make his own decisions is his . He is a full code. REVIEW OF SYSTEMS: A 14-point review of systems was completed. All pertinent positives were mentioned in the HPI. PHYSICAL EXAMINATION GENERAL: At this time, Mr. Culver is alert and oriented, resting on the stretcher in the emergency room. He is in no acute distress. VITAL SIGNS: Blood pressure 113/56, heart rate 61, respirations are 24, O2 saturation is 99%, temperature was 97. HEENT: Head is atraumatic, normocephalic. Eyes: EOMs are intact. Sclerae anicteric and not pale. Oral mucosa is moist. NECK: Supple. LUNGS: Clear to auscultation bilaterally. No wheezes, rales, or rhonchi. CARDIAC: S1, S2. Regular rate and rhythm. No murmurs, rubs, or gallops. ABDOMEN: Soft and nontender. Bowel sounds are present x4. EXTREMITIES: He is able to move all 4 extremities. There is no clubbing or cyanosis. NEUROLOGIC: He is awake, alert, oriented x3. His speech is clear. Thought process is intact. SKIN: Intact. DIAGNOSTIC STUDIES/LAB DATA: WBCs are 5.1, RBCs 4.55, hemoglobin 13.9, hematocrit is 41, platelet count 148. INR is 1.08, APTT was 30.2. Sodium 133, potassium 4.2, chloride 98, carbon dioxide is 30, anion gap is 5, BUN 20, creatinine 0.83, glucose 111, lactic acid 1, calcium 9.8, magnesium 1.7. Total bilirubin 0.60, ASTs were 20, ALTs 17, alkaline phosphatase was 46. BNP was 142. troponin 0.1. EKG showed sinus rhythm at a rate of 76 with PVCs. He does have ST elevation in lead 2, 3, and aVF and T-wave inversions in V6 and V1. When compared to prior EKGs, is without significant change. Chest x-ray showed no active cardiopulmonary disease. ASSESSMENT AND PLAN: Mr. Culver is an 83-year-old male with a past medical history significant for coronary artery disease, history of myocardial infarction and status post coronary artery bypass grafting and stenting and pacemaker placement, hyperlipidemia, hypertension, history of paroxysmal supraventricular tachycardia, cardiomyopathy, who presented to the emergency room with complaints of midsternal chest pain radiating to his jaw that started approximately between 4 and 4:30 this a.m. He will be admitted under observation for: 1. Chest pain. We will bring him in to rule out acute coronary syndrome. The patient did have chest pain. His initial troponin is 0.01. His repeat troponin is pending. The patient does have a history of coronary artery disease. He did have a nuclear stress test in 05/15/19. At that time, it was determined to be intermediate to high risk stress test due to his history of infarct. when this stress was compared to prior stress of 2018, there were no significant changes according to documentation from 11/14/2019 from cardiology follow up note in [facility]. The patient's most recent transthoracic echocardiogram was also from April 2019. At that time, he had an ejection fraction of 40% to 45% and global hypokinesis noted on the echo. At this time, we will continue to trend his troponins. The patient has had a total of 650 mg of aspirin prior to arrival to the ER. He took nitro 0.4 x3. Currently, chest pain is resolved. Should his chest pain return, we will give him nitro paste to the chest wall. We will continue to trend his troponins. Should his troponins become significantly positive, we will consult Cardiology. I have discussed this case with Dr. Gage from Cardiology, who has recommended that we repeat a nuclear stress test at this time and no need currently for heparin drip. He will continue his metoprolol, simvastatin, and aspirin as previously prescribed. We will monitor him on telemetry as well and he will have an exercise nuclear stress test in the a.m. His HEART score is 7 giving him a MACE of 50% to 65% of adverse cardiac event. Should his troponin continue to elevate should consider starting Lovenox or heparin. 2. History of cardiomyopathy. The patient should continue on aspirin, ramipril , simvastatin, and metoprolol as previously prescribed. 3. Hypertension. He should continue on ramipril as previously prescribed. 4. Hyperlipidemia. He will continue on simvastatin as previously prescribed. 5. FEN: He can have a heart healthy, no caffeine diet. 6. Code status: He is a full code. 7. DVT prophylaxis: I will place him on Lovenox subcu. TIME SPENT: Time spent on this admission was 60 minutes, greater than half that time was spent at the bedside reviewing events leading thus far to his hospitalization, performing physical exam, and reviewing my plan of care. I have discussed this with my attending, Dr. Betsy Walker; she is in agreement with my plan. ANUSHKA EVELINE, [employer] [id number]/[facility] #: [id number] JACQUELINE
[2019-11-27] MEDS ORDERED: Magnesium Sulfate 1 GM IV* 1 GM/100 ML BAG IV ONE (14:41)
[2019-11-27] MEDS ORDERED: Nitro Patch/OINT Remove TOPICAL ONE (19:15)
--- NOTE | 2019-11-27 19:33 | CONS ---
CC: Dr. Madhu Houston; Dr. Lanette Morris * CARDIOLOGY CONSULTATION: DATE OF CONSULT: 11/27/19 INDICATION FOR CONSULTATION: Chest pain. HISTORY OF PRESENT ILLNESS: The patient is an 83-year-old gentleman with a history of coronary artery disease, history of coronary bypass surgery in 1996, history of stenting of his [place] right coronary artery in 2010, history of pacemaker implantation in 2016, who came to emergency room with chest pain. The patient was seen by Dr. Morris on 11/13/19, and had no complaints at that time and did not complain of any episodes of chest pain or shortness of breath. His medications were kept the same. The patient states that he woke at 4 o' clock this morning with a pressure on his chest and pain in his left side of his chest radiating to his left arm and up into his jaw. He rated the pain as 5 out of 10. He took a Tums tablet with some water and a sublingual nitroglycerin. He had a decrease in his discomfort, but did not completely resolve. He took a second sublingual nitroglycerin and had again decrease in his symptoms, but did not completely resolve. At that time, he called 911. On arrival to the emergency room, he was still having some mild pain in his chest, radiating to his left jaw. An initial EKG showed normal sinus rhythm with 1.[address]-segment elevations that appeared to be new. At that time, a STEMI was called. Dr. Sandoval reviewed the EKG and the patient's symptoms and decided not to undergo urgent cardiac catheterization. The patient was admitted to the hospital. The patient has been having the same discomfort, sort of on and off throughout the day. It never reached more than a 2/10 throughout the day. The patient was placed on a nitroglycerin patch, which seemed to relieve the discomfort. The patient was given subcutaneous Lovenox at 40 mg at 11 a.m. PAST MEDICAL HISTORY: Significant for coronary artery disease as described above, ischemic cardiomyopathy, myocardial infarction, hyperlipidemia, hypertension. PAST SURGICAL HISTORY: Coronary artery bypass surgery in 1996, pacemaker implantation in 2016, stent placement in 2010, SVT ablation in 2016. OUTPATIENT MEDICATIONS: 1. Aspirin 81 mg a day. 2. Ramipril 5 mg in the morning, 2.5 mg at night. 3. Simvastatin 20 mg a day. 4. Metoprolol ER 50 mg a day. 5. Fosamax 70 mg once a week. 6. Loratadine 10 mg as needed. ALLERGIES: CODEINE, SUDAFED, and LATEX. FAMILY HISTORY: Father has a history of myocardial infarction. He has a brother and a sister with diabetes. SOCIAL HISTORY: He is retired. He is . He denies tobacco or alcohol use. He tries to get regular exercise. REVIEW OF SYSTEMS: Negative for fever or chills. Negative for changes in bowel or bladder habits. Negative for change in weight. PHYSICAL EXAM: Height is 5 feet 6 inches, weight is 149 pounds, temperature 97.7, heart rate is 66, blood pressure 115/50, respiratory rate is 19 and oxygen saturation 100% on room air. Sclerae anicteric. Oropharynx is pink without erythema. Carotids are 2+ without bruits. JVD is normal. Thyroid is normal. Cardiac Exam: S1, S2 without any murmurs, rubs or gallops. Lungs are clear to auscultation bilaterally. There is no dullness to percussion. Abdomen is soft, nontender, nondistended with normoactive bowel sounds. Extremities show no edema. He has 2+ pulses throughout. The patient is awake, alert, and oriented. He moves all 4 extremities equally. His pacemaker site is normal. DIAGNOSTIC STUDIES/LAB DATA: EKGs as described above. Laboratory studies: CBC within normal limits. Chemistries within normal limits. BUN 20, creatinine 0.8. AST and ALT are normal. BNP is 142. LDL direct is 55. Initial troponin 0.01 and then 0.05 and then 0.2. IMPRESSION AND PLAN: This is an 83-year-old gentleman with a history of known coronary artery disease, who came to the hospital because of anginal-type symptoms. Again, his initial EKG had some concerns about ST-segment elevation, but ultimately did not meet criteria for ST-elevation myocardial infarction. The patient was admitted to the hospital. He was kept on his usual medications. He was given a dose of subcutaneous Lovenox. He was placed on a nitroglycerin patch. Currently, the patient is pain-free. It is my recommendation the patient undergo a chemical nuclear stress test in the morning. The risks and benefits of this were described in detail. Further recommendation is pending results of his stress test. If his troponins go greater than 1.0, I would consider cardiac catheterization. This was discussed with Anushka Landry NP. [id number]/[facility] #: [id number] JACQUELINE
[2019-11-27 20:38] LABS: Troponin I 0.74 ng/mL (<0.03)
[2019-11-27] MEDS ORDERED: Ramipril CAP* 2.5 MG PO SCH (21:00)
[2019-11-27] MEDS: Atorvastatin* 10 MG TAB PO SCH ×2 (21:12→21:16)
[2019-11-27] MEDS: Enoxaparin(*) 80 MG/0.8 ML SYR SUBCUT SCH (22:20)
[2019-11-27 23:15] LABS: Troponin I 1.02 ng/mL (<0.03)
--- NOTE | 2019-11-28 00:12 | PN ---
Progress Note - Progress Note Date of Service: 11/28/19 Note: Trop 1.07, EKG unchanged, To bedside to tlak with patient. Patient states he has less than 1 out of 10 chest pain, states it i no where near when he came in states chest is tender. At this point will increase nitro past to one inch. Will trend trops, pt given 70mg sub q lovenox, Cardiology updated at this point no new recommendations, Updated attending as well. Will follow closely,
[2019-11-28 02:14] LABS: Troponin I 1.24 ng/mL (<0.03)
[2019-11-28] MEDS ORDERED: Nitro Patch/OINT Remove TOPICAL ONE ×2 (03:00→06:00)
[2019-11-28 04:45] LABS: ABS Eosinophils 0.1 10^3/ul (0-0.6); ABS Lymphocytes 1.3 10^3/ul (1.0-4.8); ABS Monocytes 0.4 10^3/ul (0-0.8); ABS Neutrophils 3.4 10^3/ul (1.5-7.7); Eosinophil % 1.2 %; Hematocrit 42 % (42-52); Hemoglobin 14.1 g/dL (14.0-18.0); Lymphocyte % 24.3 %; Mean Corpuscular HGB Conc 34 g/dL (31-36); Mean Corpuscular Hemoglobin 30 pg (27-31); Mean Corpuscular Volume 90 fL (80-94); Mean Platelet Volume 7.7 fL (7.4-10.4); Platelet Count 139 10^3/uL (150-450); Red Blood Count 4.64 10^6 /uL (4.18-5.48); Red Cell Distribution Width 14 % (10-15); White Blood Count 5.3 10^3/uL (3.5-10.8)
[2019-11-28 04:59] LABS: Calcium 8.8 mg/dL (8.6-10.3); Potassium 4.1 mmol/L (3.5-5.0)
[2019-11-28 05:05] LABS: BUN/Creatinine Ratio 25.3 (8-20); EGFR African American 119.8 (>60); HDL Cholesterol 44.4 mg/dL
[2019-11-28 05:11] LABS: Troponin I 1.29 ng/mL (<0.03)
[2019-11-28] MEDS: Enoxaparin(*) 80 MG/0.8 ML SYR SUBCUT SCH (07:58)
--- NOTE | 2019-11-28 08:05 | PN ---
Subjective - Subjective Reason for Note: Progress Note History: I obtained a detailed history from Lisa Estrella and reviewed the admitting history and physical by SHYLA Diaz and Dr. Henok Gage's cardiology consultation. I have also reviewed the electronic hospital records. He was woken by central chest pain that didn't radiate, and was not associated with nausea, vomiting, palpitations, dyspnea or light headedness. He noticed mild diaphoresis once. He took an antacid and x 3 NTG tablets - he had relief only on the 3rd and called 911. The pain was mostly gone after arriving in the emergency department. He had some discomfort in the left chest is different from the central chest pain and wonders if this is musculo-skeletal. He walked around the [place] 5 times yesterday without reproducing the symptoms. This morning he has the slightest left chest discomfort. Active Problems: Active Problems Acute coronary syndrome (Acute) I24.9 BPH (benign prostatic hyperplasia) (Chronic) N40.0 Cardiac pacemaker (Chronic) Z95.0 Cardiomyopathy (Chronic) I42.9 Chronic lymphocytic leukemia (CLL), B-cell (Chronic) C91.10 Essential hypertension (Chronic) I10 GERD (gastroesophageal reflux disease) (Chronic) K21.9 History of coronary artery bypass graft (Chronic) History of coronary artery stent placement (Chronic) Z95.5 History of paroxysmal supraventricular tachycardia (Chronic) Z86.79 History of radiofrequency ablation (RFA) procedure for cardiac arrhythmia ( Chronic) Z98.890 Hypercholesterolemia (Chronic) E78.00 Rheumatoid arthritis (Chronic) M06.9 Sick sinus syndrome (Chronic) I49.5 Sleep apnea (Chronic) G47.30 Type 2 diabetes mellitus (Chronic) Current Medications: Current Medications Acetaminophen (Tylenol Tab*) 650 mg PO Q4H PRN PRN Reason: MILD PAIN or TEMP > 100.4 Aspirin (Aspirin 81 Mg Chew Tab*) 81 mg PO DAILY [facility] Atorvastatin Calcium (Lipitor*) 10 mg PO 2100 [facility] Last Admin: 11/27/19 21:16 Dose: 10 mg Enoxaparin Sodium (Lovenox(*)) 70 mg SUBCUT Q12H [facility] Last Admin: 11/27/19 22:20 Dose: 70 mg Metoprolol Succinate (Toprol Xl Tab*) 50 mg PO DAILY [facility] Multivitamins/Minerals (Theragran/Minerals Tab*) 1 tab PO DAILY [facility] Ramipril (Altace Cap*) 2.5 mg PO BEDTIME [facility] Last Admin: 11/27/19 21:12 Dose: 2.5 mg Ramipril (Altace Cap*) 5 mg PO QAM [facility] Home Medications: Home Medications Medication Instructions Recorded Confirmed Type Metoprolol Succinate XL TAB* 50 mg PO DAILY 04/29/17 11/27/19 History [Toprol XL TAB*] [place]-3 Fatty Acids (Nf) [Fish Oil 1,000 mg PO BID 04/29/17 11/27/19 History (NF)] Ramipril CAP* [Altace CAP*] 2.5 mg PO BEDTIME 04/29/17 11/27/19 History Simvastatin (NF) [Zocor (NF)] 20 mg PO DAILY 04/29/17 11/27/19 History Aspirin 81 mg PO DAILY 04/06/19 11/27/19 History Alendronate (NF) [Fosamax (NF)] 70 mg PO WEEKLY 11/27/19 11/27/19 History Calcium Carb, Citrate/Vit D3 1 each PO DAILY 11/27/19 11/27/19 History [Calcium + D3 ER Tablet] Multivitamins/Minerals TAB* 1 tab PO DAILY 11/27/19 11/27/19 History [Theragran/minerals TAB*] Nitroglycerin TAB 0.4 MG* 0.4 mg SL Q5M PRN 11/27/19 11/27/19 History Ramipril CAP* [Altace CAP*] 5 mg PO QAM 11/27/19 11/27/19 History Triamcinolone 0.1% CREAM(NF) 1 applic TOPICAL BEDTIME PRN 11/27/19 11/27/19 History [Kenalog 0.1% Cream (NF)] Allergies: Allergies Allergy/AdvReac Type Severity Reaction Status Date / Time codeine Allergy Tachycardia Verified 11/27/19 07:36 latex Allergy Hives Verified 11/27/19 07:36 pseudoephedrine Allergy Palpitation Verified 11/27/19 07:36 s Objective - Vital Signs Vital Signs: Vital Signs 11/27/19 11/27/19 11/27/19 08:00 08:03 08:33 Temperature Pulse Rate 60 60 60 Respiratory 18 15 19 Rate Blood Pressure 102/48 106/62 (mmHg) O2 Sat by Pulse 97 97 97 Oximetry 11/27/19 11/27/19 11/27/19 09:00 09:03 09:35 Temperature Pulse Rate 62 60 60 Respiratory 17 13 20 Rate Blood Pressure 113/56 (mmHg) O2 Sat by Pulse 90 94 99 Oximetry 11/27/19 11/27/19 11/27/19 09:41 10:00 10:03 Temperature Pulse Rate 69 62 Respiratory 18 12 19 Rate Blood Pressure 137/48 142/61 (mmHg) O2 Sat by Pulse 96 98 Oximetry 11/27/19 11/27/19 11/27/19 10:31 10:32 10:50 Temperature 97.8 F 97.9 F Pulse Rate 64 67 85 Respiratory 17 19 Rate Blood Pressure 129/58 129/58 141/69 (mmHg) O2 Sat by Pulse 97 96 100 Oximetry 11/27/19 11/27/19 11/27/19 12:50 15:11 19:15 Temperature 97.7 F 97.2 F Pulse Rate 77 66 76 Respiratory 19 16 Rate Blood Pressure 135/77 115/50 153/69 (mmHg) O2 Sat by Pulse 100 100 Oximetry 11/27/19 11/28/19 11/28/19 23:15 03:10 07:18 Temperature 98 F 97.5 F 97.9 F Pulse Rate 76 78 68 Respiratory 18 17 17 Rate Blood Pressure 130/55 116/58 117/59 (mmHg) O2 Sat by Pulse 99 100 100 Oximetry 11/28/19 07:46 Temperature Pulse Rate Respiratory 17 Rate Blood Pressure (mmHg) O2 Sat by Pulse Oximetry - Intake and Output Intake and Output: Intake & Output 11/25/19 11/26/19 11/27/19 11/28/19 11:59 11:59 11:59 11:59 Intake Total 790 Output Total 0 Balance 790 Weight 149 lb 1.6 oz Intake: IV Fluids 100 Oral 690 Output: Urine 0 Other: # Bowel Movements 1 Estimated Stool Amount Small # Voids 2 ADLs: Meal Record Start: 11/27/19 10: 13 Freq: DAILY@0900,1400,1800 Status: Active Protocol: Created 11/27/19 10:13 System (Rec: 11/27/19 10:13 System [email or web address]) Document 11/27/19 14:00 (Rec: 11/27/19 14:14 [id number]) Document 11/27/19 17:57 [id number] (Rec: 11/27/19 17:57 [id number] [email or web address]) Intake and Output Start: 11/27/19 07: 34 Freq: Status: Active Protocol: Created 11/27/19 07:34 System (Rec: 11/27/19 07:34 System [id number]) Intake and Output Start: 11/27/19 10: 13 Freq: DAILY@0600,1400,2200 Status: Active Protocol: Created 11/27/19 10:13 System (Rec: 11/27/19 10:13 System [email or web address]) Document 11/27/19 14:00 [id number] (Rec: 11/27/19 14:14 [email or web address]) Document 11/27/19 22:00 [id number] (Rec: 11/27/19 22:05 [id number] [email or web address]) Document 11/28/19 06:00 [id number] (Rec: 11/28/19 06:29 [id number] [id number]) - Physical Exam General Physical Exam Comment: He is warm and well perfused. He is hemodynamically stable and in no acute distress. He is insightful and actively engaged in his management decision making General: No Cyanosis, No Anemia, No Jaundice, No Clubbing Lungs and Chest: Yes: Chest Expansion Full, Chest Expansion Symetrica, Percussion Note Resonant, Vessicular Breath Sounds. No: Crackles, Wheezes, Respiratory Distress, Use of Accessory Muscles Heart Rate and Rhythm: Regular Additional Cardiovascular: Yes: Normal Heart Sounds. No: Heart Murmur, Carotid Bruits, Pedal Edema Abdominal Exam: Yes: Soft, Bowel Sounds Present. No: Distention, Abdominal Mass , Abdominal Tenderness, Guarding, Rebound Tenderness - Extremities Cranial Nerves II-XII Intact: Yes Limbs: Normal Power, Normal Tone, Normal Coordination - Neuro Orientation: A/O x3 Psychiatric: Normal Speech: Normal Results - Results Lab Results: Laboratory Results - last 24 hr 11/27/19 11/27/19 11/27/19 07:30 07:30 10:30 WBC RBC Hgb Hct MCV MCH MCHC RDW Plt Count MPV Neut % (Auto) Lymph % (Auto) [place] % (Auto) Eos % (Auto) Baso % (Auto) Absolute Neuts (auto) Absolute Lymphs (auto) Absolute Monos (auto) Absolute Eos (auto) Absolute Basos (auto) Absolute Nucleated RBC Nucleated RBC % Sodium 133 L Potassium 4.2 Chloride 98 L Carbon Dioxide 30 Anion Gap 5 BUN 20 Creatinine 0.83 Est GFR ( Amer) 106.5 Est GFR (Non-Af Amer) 88.1 BUN/Creatinine Ratio 24.1 H Glucose 111 H Calcium 9.8 Magnesium 1.7 L Total Bilirubin 0.60 AST 20 ALT 17 Alkaline Phosphatase 46 Total Creatine Kinase 73 CK-MB (CK-2) 1.9 Troponin I 0.01 0.07 H* B-Natriuretic Peptide 142 H Total Protein 6.0 L Albumin 3.8 Globulin 2.2 Albumin/Globulin Ratio 1.7 Triglycerides Cholesterol LDL Cholesterol LDL Cholesterol Direct 55 HDL Cholesterol 11/27/19 11/27/19 11/27/19 14:46 19:54 22:41 WBC RBC Hgb Hct MCV MCH MCHC RDW Plt Count MPV Neut % (Auto) Lymph % (Auto) [place] % (Auto) Eos % (Auto) Baso % (Auto) Absolute Neuts (auto) Absolute Lymphs (auto) Absolute Monos (auto) Absolute Eos (auto) Absolute Basos (auto) Absolute Nucleated RBC Nucleated RBC % Sodium Potassium Chloride Carbon Dioxide Anion Gap BUN Creatinine Est GFR ( Amer) Est GFR (Non-Af Amer) BUN/Creatinine Ratio Glucose Calcium Magnesium Total Bilirubin AST ALT Alkaline Phosphatase Total Creatine Kinase CK-MB (CK-2) Troponin I 0.20 H* 0.74 H* 1.02 H* B-Natriuretic Peptide Total Protein Albumin Globulin Albumin/Globulin Ratio Triglycerides Cholesterol LDL Cholesterol LDL Cholesterol Direct HDL Cholesterol 11/28/19 11/28/19 11/28/19 01:43 04:33 04:33 WBC 5.3 RBC 4.64 Hgb 14.1 Hct 42 MCV 90 MCH 30 MCHC 34 RDW 14 Plt Count 139 L MPV 7.7 Neut % (Auto) 65.4 Lymph % (Auto) 24.3 [place] % (Auto) 8.3 Eos % (Auto) 1.2 Baso % (Auto) 0.8 Absolute Neuts (auto) 3.4 Absolute Lymphs (auto) 1.3 Absolute Monos (auto) 0.4 Absolute Eos (auto) 0.1 Absolute Basos (auto) 0.0 Absolute Nucleated RBC 0.0 Nucleated RBC % 0.0 Sodium 131 L Potassium 4.1 Chloride 99 L Carbon Dioxide 26 Anion Gap 6 BUN 19 Creatinine 0.75 Est GFR ( Amer) 119.8 Est GFR (Non-Af Amer) 99.0 BUN/Creatinine Ratio 25.3 H Glucose 137 H Calcium 8.8 Magnesium Total Bilirubin AST ALT Alkaline Phosphatase Total Creatine Kinase CK-MB (CK-2) Troponin I 1.24 H* B-Natriuretic Peptide Total Protein Albumin Globulin Albumin/Globulin Ratio Triglycerides 51 Cholesterol 107 LDL Cholesterol 52 LDL Cholesterol Direct HDL Cholesterol 44.4 11/28/19 04:33 WBC RBC Hgb Hct MCV MCH MCHC RDW Plt Count MPV Neut % (Auto) Lymph % (Auto) [place] % (Auto) Eos % (Auto) Baso % (Auto) Absolute Neuts (auto) Absolute Lymphs (auto) Absolute Monos (auto) Absolute Eos (auto) Absolute Basos (auto) Absolute Nucleated RBC Nucleated RBC % Sodium Potassium Chloride Carbon Dioxide Anion Gap BUN Creatinine Est GFR ( Amer) Est GFR (Non-Af Amer) BUN/Creatinine Ratio Glucose Calcium Magnesium Total Bilirubin AST ALT Alkaline Phosphatase Total Creatine Kinase CK-MB (CK-2) Troponin I 1.29 H* B-Natriuretic Peptide Total Protein Albumin Globulin Albumin/Globulin Ratio Triglycerides Cholesterol LDL Cholesterol LDL Cholesterol Direct HDL Cholesterol Radiology Results: Patient Name: LISA ESTRELLA Medical Record#: [id number] Ordering Physician: Nicki Hester MD Acct.#: [id number] : 1935 Age: 83 Sex: M Location: EMERGENCY DEPARTMENT Exam Date: 11/27/19731 ADM Status: REG ER Order Information: CHEST AP/PORT Accession Number: [id number] CPT: 83013 HISTORY: cp chest pain COMPARISONS: August 16, 2017 VIEWS: 1: frontal AP view of the chest at 7:30 AM FINDINGS: LINES AND TUBES: A left-sided pacemaker is noted. CARDIOMEDIASTINAL SILHOUETTE: The cardiomediastinal silhouette is normal for portable technique. PLEURA: The costophrenic angles are sharp. No pleural abnormalities are noted. LUNG PARENCHYMA: The lungs are clear. ABDOMEN: The upper abdomen is clear. There is no subphrenic gas. BONES AND SOFT TISSUES: The patient is status post median sternotomy. IMPRESSION: NO ACTIVE CARDIOPULMONARY DISEASE. <Electronically signed by Cr Hansen MD in OV> 11/27/19807 Dictated By: Cr Hansen MD Dictated Date/Time: 11/27/19807 Transcribed Date/Time: 11/27/19807 Copy to: CC:Madhu Houston MD; Nicki Hester MD Imaging - [facility] Imaging - [facility] [address] [address] ph ([phone]) ph ([phone]) ph ([phone]) This report is only to be considered final once signed by the Provider(s) as displayed in the "<Electronically Signed by >" field (s). Absence of a signature indicates the report is in a draft status and still needs to be finalized. In the event this document was created by someone other than the signing Provider, the individual initiating the document will be listed in the "Entered by:" or "Dictated by:" justice. 1 of 1 Assessment - Problem List Assessment: Patient Problems Acute coronary syndrome (Acute) BPH (benign prostatic hyperplasia) (Chronic) Cardiac pacemaker (Chronic) Cardiomyopathy (Chronic) Chronic lymphocytic leukemia (CLL), B-cell (Chronic) Essential hypertension (Chronic) GERD (gastroesophageal reflux disease) (Chronic) History of coronary artery bypass graft (Chronic) History of coronary artery stent placement (Chronic) History of paroxysmal supraventricular tachycardia (Chronic) History of radiofrequency ablation (RFA) procedure for cardiac arrhythmia ( Chronic) Hypercholesterolemia (Chronic) Rheumatoid arthritis (Chronic) Sick sinus syndrome (Chronic) Sleep apnea (Chronic) Type 2 diabetes mellitus (Chronic) Plan: Acute coronary syndrome (Acute) He presents with acute chest pain at rest. This was relieved by the 3rd nitroglycerine tablet. His troponin I series is positive. I spoke to Dr. Lanette Morris - she is going to decide if he is going to have a stress test or proceed directly to a cardiac catheterization. He has no significant pain at present Comorbidities: Type 2 diabetes mellitus (Chronic) Stable and on target Essential hypertension (Chronic) Cardiac pacemaker (Chronic) He is not being paced Cardiomyopathy (Chronic) No symptoms or signs or left ventricular failure History of coronary artery bypass graft (Chronic) History of coronary artery stent placement (Chronic) History of paroxysmal supraventricular tachycardia ( Chronic) History of radiofrequency ablation (RFA) procedure for cardiac arrhythmia (Chronic) - he has had no rhythm disturbance. Clearly, he has the substrate for coronary artery occlusion. Secondary diagnoses: BPH (benign prostatic hyperplasia) (Chronic) Chronic lymphocytic leukemia (CLL), B-cell (Chronic) GERD (gastroesophageal reflux disease) (Chronic) Hypercholesterolemia (Chronic) Rheumatoid arthritis (Chronic) Sick sinus syndrome (Chronic) Sleep apnea (Chronic) I discussed the above with Mr. Estrella and he understands the decision making process. I tried to call his wire Estella Estrella - but she didn't pick and shovel man. I spoke with Dr. Morris, his primary radiophone operator, who will decide on the optimal risk stratification process and ongoing management.
[2019-11-28 08:24] LABS: Troponin I 1.54 ng/mL (<0.03)
[2019-11-28 08:27] LABS: Magnesium 1.8 mg/dL (1.9-2.7)
[2019-11-28] MEDS ORDERED: Atorvastatin* 10 MG TAB PO SCH (09:00)
[2019-11-28] MEDS ORDERED: Ramipril CAP* 2.5 MG PO SCH (09:00)
[2019-11-28] MEDS ORDERED: Ticagrelor* 90 MG TAB PO ONE (09:15)
--- NOTE | 2019-11-28 09:32 | PN ---
<NeoMavis - Last Filed: 11/28/19 09:37> Subjective Date of Service: 11/28/19 - NSTEMI Interval History: Patient states he has continued to have low level chest pain. At times he states he feels it is musculoskeletal and is reproducible with palpation however , currently it is sternal an not reproducible with palpation. Denies dizziness, lightheadedness, syncope, palpitations. He adds it is similar to presenting chest pain. 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[employer] Enoxaparin Sodium (Lovenox(*)) 70 mg SUBCUT ONCE ONE Stop: 11/28/19 21:01 Sodium Chloride (Ns 0.9% 1000 Ml) 1,000 mls @ 100 mls/hr IV .per rate [facility] Isosorbide Mononitrate (Imdur Er Tab*) 30 mg PO DAILY [facility] Metoprolol Succinate (Toprol Xl Tab*) 50 mg PO DAILY [facility] Multivitamins/Minerals (Theragran/Minerals Tab*) 1 tab PO DAILY [facility] Ramipril (Altace Cap*) 2.5 mg PO BEDTIME [facility] Last Admin: 11/27/19 21:12 Dose: 2.5 mg Ramipril (Altace Cap*) 5 mg PO QAM [facility] Ticagrelor (Brilinta*) 180 mg PO ONCE ONE Stop: 11/28/19 09:16 Ticagrelor (Brilinta*) 90 mg PO BID [facility] Objective Vital Signs: Temp Pulse Resp BP Pulse Ox 97.9 F 68 17 117/59 100 11/28/19 07:18 11/28/19 07:18 11/28/19 07:46 11/28/19 07:18 11/28/19 07:18 Oxygen Devices in Use Now: None Appearance: Lying upright in bed, appears in NAD, pleasant and cooperative. A=O x3. Eyes: No Scleral Icterus Ears/Nose/Mouth/Throat: NL Teeth, Lips, Gums, Clear Oropharnyx, Mucous Membranes Moist Neck: NL Appearance and Movements; NL JVP, Trachea Midline Respiratory: Symmetrical Chest Expansion and Respiratory Effort, Clear to Auscultation Cardiovascular: NL Sounds; No Murmurs; No JVD, No Edema Extremities: No Edema Skin: No Rash or Ulcers Neurological: Alert and Oriented x 3 Lines/Tubes/Other Access: Clean, Dry and Intact Peripheral IV Laboratory Results: 11/28/19 04:33 11/28/19 04:33 INR (Anticoag Therapy) 1.08 (0.82-1.09) 11/27/19 07:30 APTT 30.2 seconds (26.0-38.0) 11/27/19 07:30 Total Bilirubin 0.60 mg/dL (0.2-1.0) 11/27/19 07:30 AST 20 U/L (13-39) 11/27/19 07:30 ALT 17 U/L (7-52) 11/27/19 07:30 Alkaline Phosphatase 46 U/L (34-104) 11/27/19 07:30 CK-MB (CK-2) 1.9 ng/mL (0.6-6.3) 11/27/19 07:30 B-Natriuretic Peptide 142 pg/mL (<=100) H 11/27/19 07:30 Total Protein 6.0 g/dL (6.4-8.9) L 11/27/19 07:30 Albumin 3.8 g/dL (3.2-5.2) 11/27/19 07:30 Globulin 2.2 g/dL (2-4) 11/27/19 07:30 Albumin/Globulin Ratio 1.7 (1-3) 11/27/19 07:30 Triglycerides 51 mg/dL 11/28/19 04:33 Cholesterol 107 mg/dL 11/28/19 04:33 LDL Cholesterol 52 mg/dL 11/28/19 04:33 HDL Cholesterol 44.4 mg/dL 11/28/19 04:33 11/27/19 11/27/19 11/27/19 07:30 10:30 14:46 Troponin I 0.01 0.07 H* 0.20 H* 11/27/19 11/27/19 11/28/19 19:54 22:41 01:43 Troponin I 0.74 H* 1.02 H* 1.24 H* 11/28/19 11/28/19 04:33 07:57 Troponin I 1.29 H* 1.54 H* Laboratory Results - last 24 hr 11/27/19 11/27/19 11/27/19 07:30 10:30 14:46 WBC RBC Hgb Hct MCV MCH MCHC RDW Plt Count MPV Neut % (Auto) Lymph % (Auto) [place] % (Auto) Eos % (Auto) Baso % (Auto) Absolute Neuts (auto) Absolute Lymphs (auto) Absolute Monos (auto) Absolute Eos (auto) Absolute Basos (auto) Absolute Nucleated RBC Nucleated RBC % Sodium 133 L Potassium 4.2 Chloride 98 L Carbon Dioxide 30 Anion Gap 5 BUN 20 Creatinine 0.83 Est GFR ( Amer) 106.5 Est GFR (Non-Af Amer) 88.1 BUN/Creatinine Ratio 24.1 H Glucose 111 H Calcium 9.8 Magnesium 1.7 L Total Bilirubin 0.60 AST 20 ALT 17 Alkaline Phosphatase 46 Total Creatine Kinase 73 CK-MB (CK-2) 1.9 Troponin I 0.01 0.07 H* 0.20 H* Total Protein 6.0 L Albumin 3.8 Globulin 2.2 Albumin/Globulin Ratio 1.7 Triglycerides Cholesterol LDL Cholesterol LDL Cholesterol Direct 55 HDL Cholesterol 11/27/19 11/27/19 11/28/19 19:54 22:41 01:43 WBC RBC Hgb Hct MCV MCH MCHC RDW Plt Count MPV Neut % (Auto) Lymph % (Auto) [place] % (Auto) Eos % (Auto) Baso % (Auto) Absolute Neuts (auto) Absolute Lymphs (auto) Absolute Monos (auto) Absolute Eos (auto) Absolute Basos (auto) Absolute Nucleated RBC Nucleated RBC % Sodium Potassium Chloride Carbon Dioxide Anion Gap BUN Creatinine Est GFR ( Amer) Est GFR (Non-Af Amer) BUN/Creatinine Ratio Glucose Calcium Magnesium Total Bilirubin AST ALT Alkaline Phosphatase Total Creatine Kinase CK-MB (CK-2) Troponin I 0.74 H* 1.02 H* 1.24 H* Total Protein Albumin Globulin Albumin/Globulin Ratio Triglycerides Cholesterol LDL Cholesterol LDL Cholesterol Direct HDL Cholesterol 11/28/19 11/28/19 11/28/19 04:33 04:33 04:33 WBC 5.3 RBC 4.64 Hgb 14.1 Hct 42 MCV 90 MCH 30 MCHC 34 RDW 14 Plt Count 139 L MPV 7.7 Neut % (Auto) 65.4 Lymph % (Auto) 24.3 [place] % (Auto) 8.3 Eos % (Auto) 1.2 Baso % (Auto) 0.8 Absolute Neuts (auto) 3.4 Absolute Lymphs (auto) 1.3 Absolute Monos (auto) 0.4 Absolute Eos (auto) 0.1 Absolute Basos (auto) 0.0 Absolute Nucleated RBC 0.0 Nucleated RBC % 0.0 Sodium 131 L Potassium 4.1 Chloride 99 L Carbon Dioxide 26 Anion Gap 6 BUN 19 Creatinine 0.75 Est GFR ( Amer) 119.8 Est GFR (Non-Af Amer) 99.0 BUN/Creatinine Ratio 25.3 H Glucose 137 H Calcium 8.8 Magnesium 1.8 L Total Bilirubin AST ALT Alkaline Phosphatase Total Creatine Kinase CK-MB (CK-2) Troponin I 1.29 H* Total Protein Albumin Globulin Albumin/Globulin Ratio Triglycerides 51 Cholesterol 107 LDL Cholesterol 52 LDL Cholesterol Direct HDL Cholesterol 44.4 11/28/19 07:57 WBC RBC Hgb Hct MCV MCH MCHC RDW Plt Count MPV Neut % (Auto) Lymph % (Auto) [place] % (Auto) Eos % (Auto) Baso % (Auto) Absolute Neuts (auto) Absolute Lymphs (auto) Absolute Monos (auto) Absolute Eos (auto) Absolute Basos (auto) Absolute Nucleated RBC Nucleated RBC % Sodium Potassium Chloride Carbon Dioxide Anion Gap BUN Creatinine Est GFR ( Amer) Est GFR (Non-Af Amer) BUN/Creatinine Ratio Glucose Calcium Magnesium Total Bilirubin AST ALT Alkaline Phosphatase Total Creatine Kinase CK-MB (CK-2) Troponin I 1.54 H* Total Protein Albumin Globulin Albumin/Globulin Ratio Triglycerides Cholesterol LDL Cholesterol LDL Cholesterol Direct HDL Cholesterol Diagnostic Imaging: Echo pending. EKG Data: 11/28/2019; telemetry reviewed. No Vt/VF Assessment/Plan #1 NSTEMI; Patient presented with sudden onset resting substernal chest pain ( tightness) radiating diffusely across chest into left side of jaw( known anginal equivalent). improved with NTG but has not resolved. Troponin continues to climb. Last Troponin was 1.5. Unfortunately, he was given therapeutic Lovenox this morning at 0758 thus, we will plan for C 11/29/2019. Will continue Lovenox with last dose being tonight at 2100. Will start Brilinta therapy with a 180mg load this morning. Continue ASA 81/day, Lipitor 10/day (LDL <70) and Toprol therapy. As for refractory chest pain will give Imdur 30mg/day and consider IV NTG if pain persists. Echo order placed in addition to ECG order given ongoing chest pain. [facility] risk/indication/benefit reviewed with patient and his . He is aware that risks include but are not limited to bleeding, infection, vessel damage, contrast induced nephropathy, NH, , CVA, requirement of DAPT. Patient agreeable to proceeding. 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 Denies bleeding complications in the past, has know mild transient thrombocytopenia. h/o groin hematoma after [address] [facility] per patient that was self limited. #2 h/o CAD with remote CABG x3 in 1996( L/LAD, sequential vein graft to diag branch to OM and ending on a PDA of RCA). subsequent9 overlapping) stenting to RCA in 2010. He is on ASA, statin and bblocker therapy. 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 Compensated on exam. On Toprol and Ramipril at home. Will hold Ramipril to improve blood pressure so he tolerates nitrate therapy given ongoing chest pain. Echo to be updated. ACEI needs to be re addressed post [facility]. 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 #5 Disposition pending course. Patient listed as full code. Will follow closely given refractory chest pain. May require IV NTG and transfer to ICU if pain does not respond to Imdur therapy. Discussed case with Dr. Morris who agree with above assessment and plan. 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 Sodium (Lovenox(*)) 70 mg SUBCUT ONCE ONE Stop: 11/28/19 21:01 Sodium Chloride (Ns 0.9% 1000 Ml) 1,000 mls @ 100 mls/hr IV .per rate [facility] Isosorbide Mononitrate (Imdur Er Tab*) 30 mg PO DAILY [facility] Last Admin: 11/28/19 09:52 Dose: 30 mg Metoprolol Succinate (Toprol Xl Tab*) 50 mg PO DAILY [facility] Last Admin: 11/28/19 09:52 Dose: 50 mg Multivitamins/Minerals (Theragran/Minerals Tab*) 1 tab PO DAILY [facility] Last Admin: 11/28/19 09:52 Dose: 1 tab Ticagrelor (Brilinta*) 90 mg PO BID [facility] Objective Vital Signs: Temp Pulse Resp BP Pulse Ox 97.1 F 68 16 88/46 96 11/28/19 11:17 11/28/19 11:17 11/28/19 11:17 11/28/19 15:28 11/28/19 11:17 Laboratory Results: 11/28/19 04:33 11/28/19 04:33 INR (Anticoag Therapy) 1.08 (0.82-1.09) 11/27/19 07:30 APTT 53.1 seconds (26.0-38.0) H 11/28/19 10:18 Total Bilirubin 0.60 mg/dL (0.2-1.0) 11/27/19 07:30 AST 20 U/L (13-39) 11/27/19 07:30 ALT 17 U/L (7-52) 11/27/19 07:30 Alkaline Phosphatase 46 U/L (34-104) 11/27/19 07:30 CK-MB (CK-2) 1.9 ng/mL (0.6-6.3) 11/27/19 07:30 B-Natriuretic Peptide 142 pg/mL (<=100) H 11/27/19 07:30 Total Protein 6.0 g/dL (6.4-8.9) L 11/27/19 07:30 Albumin 3.8 g/dL (3.2-5.2) 11/27/19 07:30 Globulin 2.2 g/dL (2-4) 11/27/19 07:30 Albumin/Globulin Ratio 1.7 (1-3) 11/27/19 07:30 Triglycerides 51 mg/dL 11/28/19 04:33 Cholesterol 107 mg/dL 11/28/19 04:33 LDL Cholesterol 52 mg/dL 11/28/19 04:33 HDL Cholesterol 44.4 mg/dL 11/28/19 04:33 11/27/19 11/27/19 11/27/19 07:30 10:30 14:46 Troponin I 0.01 0.07 H* 0.20 H* 11/27/19 11/27/19 11/28/19 19:54 22:41 01:43 Troponin I 0.74 H* 1.02 H* 1.24 H* 11/28/19 11/28/19 11/28/19 04:33 07:57 10:18 Troponin I 1.29 H* 1.54 H* 1.13 H* Assessment/Plan The above reviewed, I saw and examined the patient personally. I agree with the above plans for cath and for additional antianginal treatment.
[2019-11-28] MEDS ORDERED: Magnesium Sulfate 2 GM IV* 2 GM/50 ML BAG IVPB ONE (09:52)
[2019-11-28] MEDS: Isosorbide Mononitrate ER TAB* 30 MG PO SCH (09:52)
[2019-11-28] MEDS: Metoprolol Succinate XL TAB* 50 MG PO SCH (09:52)
[2019-11-28] MEDS: Aspirin 81 mg CHEW TAB* 81 MG TAB.CHEW PO SCH (09:52)
[2019-11-28] MEDS: Multivitamins/Minerals TAB PO SCH (09:52)
[2019-11-28 10:56] LABS: Troponin I 1.13 ng/mL (<0.03)
--- NOTE | 2019-11-28 13:42 | ECHO ---
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 History: Coronary artery disease. PMH: Myocardial infarction. Cardiomyopathy. Risk factors: Hypertension. Dyslipidemia. Labs, prior tests, procedures, and surgery: Catheterization. There was a stenosis which was treated with a stent. Permanent pacemaker system implantation. Coronary artery bypass grafting. Conclusions Summary: - Left ventricle: The cavity size is below normal. Wall thickness is mildly increased. Systolic function is moderately reduced. The estimated ejection fraction is 40-45%. Old inferior posterior WI. - Right ventricle: Systolic function is normal. - Mitral valve: There is mild regurgitation, directed posteriorly. - Aortic valve: The valve is trileaflet. The leaflets are mildly calcified. The findings are consistent with mild stenosis. There is mild regurgitation. The peak systolic velocity is 1.7 m/sec. The mean systolic gradient is 5.0 mm Hg. The LVOT to aortic valve VTI ratio is 0.35. The valve area by the mean velocity method is 1.3 cm^2. - Tricuspid valve: There is trace to mild regurgitation. - Pulmonary arteries: Systolic pressure is within the normal range. The peak pressure during systole by Doppler is 19.0 mm Hg. - Compared with prior echocardiogram of 06/10/19, posterior wall abnormality and ejection fraction unchanged, valve function is stable. Study data: Transthoracic echocardiogram. Procedure: Transthoracic echocardiography was performed. Image quality was fair. Complete 2D, spectral Doppler, and color flow Doppler. Location: Bedside. Patient status: Inpatient. Patient room number: 442-02. Rhythm: Paced rhythm. Findings Left ventricle: The cavity size is below normal. Wall thickness is mildly increased. There is a prominent basal septal knuckle. Systolic function is moderately reduced. The estimated ejection fraction is 40-45%. Mild diffuse hypokinesis. Regional wall motion abnormalities: Hypokinesis and akinesis of the basal-mid inferolateral and inferior myocardium. This wall is thinned and calcified c/w old WI. Doppler parameters are consistent with abnormal left ventricular relaxation (grade 1 diastolic dysfunction). Right ventricle: The cavity size is normal. Pacer wire noted in the right ventricle. Systolic function is normal. Ventricular septum: There is abnormal interventricular septal wall motion consistent with an RV pacemaker. Left atrium: The atrium is mildly dilated. Right atrium: The atrium is normal in size. Pacer wire noted in right atrium. Mitral valve: The Mitral valve annulus appears calcified. The leaflets are mildly thickened. There is no evidence of stenosis. There is mild regurgitation, directed posteriorly. Aortic valve: The valve is trileaflet. The leaflets are mildly calcified. Cusp separation is mildly reduced. The findings are consistent with mild stenosis. There is mild regurgitation. Tricuspid valve: The leaflets are normal thickness. There is no evidence of stenosis. There is trace to mild regurgitation. Pulmonic valve: The leaflets are normal thickness. There is no evidence of stenosis. There is trace regurgitation. Aorta: Aortic root: The aortic root is appears normal. Ascending aorta: The ascending aorta is appears normal. Aortic arch: The aortic arch is appears normal. Pericardium: There is no significant pericardial effusion. Pulmonary arteries: The main pulmonary artery is normal-sized. Systolic pressure is within the normal range. Systemic veins: Inferior vena cava: Not well visualized. Measurements Left ventricle Value Ref Aortic valve Value Ref PAULA, LAX (L) 3.7 cm 4.2 - 5.8 Daniel diam, ED 2.0 cm ----- ESD, LAX 3.0 cm 2.5 - 4.0 Peak v, S 1.7 m/sec ----- FS, LAX (L) 20 % 25 - 43 VTI, S 33.9 cm ----- PW, ED, LAX (H) 1.1 cm 0.6 - 1.0 Mean grad, S 5.0 mm Hg ----- FS (L) 20 % 25 - 43 Peak grad, S 11.6 mm Hg ----- Mid-wall FS 7 % LVOT/AV, VTI ratio 0.35 ----- PW, ED (H) 1.1 cm 0.6 - 1.0 JESSICA, VTI 1.11 cm^2 ----- E', lat daniel, TDI (L) 7.4 cm/sec >=10.0 JESSICA, Vmax 1.04 cm^2 --- -- E/e', lat daniel, 5 AR peak v 2.7 m/sec ----- TDI AR PHT 557 ms ----- E', med daniel, TDI (L) 4.9 cm/sec >=7.0 AR peak grad 29 mm Hg --- -- E/e', med daniel, 8 TDI Mitral valve Value Ref E', avg, TDI 6.2 cm/sec Peak E 0.4 m/sec ----- E/e', avg, TDI 6 <=14 Peak A 0.68 m/sec --- -- Decel time 335 ms ----- LVOT Value Ref Peak E/A ratio 0.6 ----- Diam, S 2.00 cm Area 3.1 cm^2 Pulmonic valve Value Ref Peak emperatriz, S 0.57 m/sec Peak v, S 0.65 m/sec ----- VTI, S 12.0 cm Peak grad, S 2.0 mm Hg ----- Mean grad, S 1 mm Hg SV 36 ml Tricuspid valve Value Ref SV/bsa 20 ml/m^2 TR peak v 1.8 m/sec <=2.8 Peak RV-RA grad, S 13 mm Hg ----- Ventricular septum Value Ref IVS, ED (H) 1.3 cm 0.6 - 1.0 Aortic root Value Ref Root diam 3.5 cm <4.0 Right ventricle Value Ref PAULA, LAX 3.8 cm Ascending aorta Value Ref PAULA minor ax, A4C 3.3 cm 1.9 - 3.5 AAo AP diam, S 3.3 cm ----- mid Pressure, S 21 mm Hg Aortic arch Value Ref Arch diam 2.2 cm ----- Left atrium Value Ref AP dim, ES (H) 4.40 cm 3.00 - Decending aorta Value Ref 4.00 Alesia peak emperatriz 0.84 m/sec ----- ML dim, A4C 4.1 cm SI dim, A4C 4.5 cm Pulmonary artery Value Ref Vol/bsa, ES, 1-p 25 ml/m^2 12 - 37 Pressure, S 19.0 mm Hg ----- A4C Vol/bsa, ES, A/L 33 ml/m^2 16 - 34 Right atrium Value Ref SI dim, ES 4.0 cm 3.4 - 5.3 ML dim, ES, A4C 3.7 cm 2.6 - 4.4 Estimated RAP 8 mm Hg Legend: (L) and (H) junaid values outside specified reference range. Prepared and electronically signed by Lanette Morris MD 11/28/2019 13:41
[2019-11-28] MEDS ORDERED: Enoxaparin(*) 80 MG/0.8 ML SYR SUBCUT ONE (21:00)
[2019-11-28] MEDS: Acetaminophen TAB* 325 MG PO PRN (21:01)
[2019-11-28] MEDS: Atorvastatin* 80 MG TAB PO SCH (21:01)
[2019-11-29] MEDS ORDERED: NS 0.9% 1000 ML** 1,000 ML IV SCH ×2 (06:00→10:45)
[2019-11-29] MEDS ORDERED: Diazepam TAB(*) 5 MG PO PRN (07:00)
[2019-11-29] MEDS ORDERED: diPHENhydraMINE PO* 25 MG PO PRN (07:00)
--- NOTE | 2019-11-29 07:18 | PN ---
Subjective - Subjective Reason for Note: Progress Note History: Mr. Estrella's chest pain went away yesterday. He has had no dyspnea, palpitations , diaphoresis or nausea. His BP was low yesterday, but this improved overnight - he is receiving IV saline. He has no other new symptoms. Active Problems: Active Problems Acute coronary syndrome (Acute) I24.9 BPH (benign prostatic hyperplasia) (Chronic) N40.0 Cardiac pacemaker (Chronic) Z95.0 Cardiomyopathy (Chronic) I42.9 Chronic lymphocytic leukemia (CLL), B-cell (Chronic) C91.10 Essential hypertension (Chronic) I10 GERD (gastroesophageal reflux disease) (Chronic) K21.9 History of coronary artery bypass graft (Chronic) History of coronary artery stent placement (Chronic) Z95.5 History of paroxysmal supraventricular tachycardia (Chronic) Z86.79 History of radiofrequency ablation (RFA) procedure for cardiac arrhythmia ( Chronic) Z98.890 Hypercholesterolemia (Chronic) E78.00 Rheumatoid arthritis (Chronic) M06.9 Sick sinus syndrome (Chronic) I49.5 Sleep apnea (Chronic) G47.30 Type 2 diabetes mellitus (Chronic) Current Medications: Current Medications Acetaminophen (Tylenol Tab*) 650 mg PO Q4H PRN PRN Reason: MILD PAIN or TEMP > 100.4 Last Admin: 11/28/19 21:01 Dose: 650 mg Aspirin (Aspirin 81 Mg Chew Tab*) 81 mg PO DAILY [facility] Last Admin: 11/28/19 09:52 Dose: 81 mg Atorvastatin Calcium (Lipitor*) 80 mg PO 2100 [facility] Last Admin: 11/28/19 21:01 Dose: 80 mg Diazepam (Valium Tab(*)) 2.5 mg PO ONCE PRN 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[employer] Diphenhydramine HCl (Benadryl Po*) 25 mg PO ONCE PRN 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[employer] Sodium Chloride (Ns 0.9% 1000 Ml) 1,000 mls @ 100 mls/hr IV .per rate [facility] Last Admin: 11/29/19 05:24 Dose: 100 mls/hr Isosorbide Mononitrate (Imdur Er Tab*) 30 mg PO DAILY [facility] Last Admin: 11/28/19 09:52 Dose: 30 mg Metoprolol Succinate (Toprol Xl Tab*) 50 mg PO DAILY [facility] Last Admin: 11/28/19 09:52 Dose: 50 mg Multivitamins/Minerals (Theragran/Minerals Tab*) 1 tab PO DAILY [facility] Last Admin: 11/28/19 09:52 Dose: 1 tab Ticagrelor (Brilinta*) 90 mg PO BID [facility] Home Medications: Home Medications Medication Instructions Recorded Confirmed Type Metoprolol Succinate XL TAB* 50 mg PO DAILY 04/29/17 11/27/19 History [Toprol XL TAB*] [place]-3 Fatty Acids (Nf) [Fish Oil 1,000 mg PO BID 04/29/17 11/27/19 History (NF)] Ramipril CAP* [Altace CAP*] 2.5 mg PO BEDTIME 04/29/17 11/27/19 History Simvastatin (NF) [Zocor (NF)] 20 mg PO DAILY 04/29/17 11/27/19 History Aspirin 81 mg PO DAILY 04/06/19 11/27/19 History Alendronate (NF) [Fosamax (NF)] 70 mg PO WEEKLY 11/27/19 11/27/19 History Calcium Carb, Citrate/Vit D3 1 each PO DAILY 11/27/19 11/27/19 History [Calcium + D3 ER Tablet] Multivitamins/Minerals TAB* 1 tab PO DAILY 11/27/19 11/27/19 History [Theragran/minerals TAB*] Nitroglycerin TAB 0.4 MG* 0.4 mg SL Q5M PRN 11/27/19 11/27/19 History Ramipril CAP* [Altace CAP*] 5 mg PO QAM 11/27/19 11/27/19 History Triamcinolone 0.1% CREAM(NF) 1 applic TOPICAL BEDTIME PRN 11/27/19 11/27/19 History [Kenalog 0.1% Cream (NF)] Allergies: Allergies Allergy/AdvReac Type Severity Reaction Status Date / Time codeine Allergy Tachycardia Verified 11/27/19 07:36 latex Allergy Hives Verified 11/27/19 07:36 pseudoephedrine Allergy Palpitation Verified 11/27/19 07:36 s Objective - Vital Signs Vital Signs: Vital Signs 11/28/19 11/28/19 11/28/19 07:18 07:46 11:17 Temperature 97.9 F 97.1 F Pulse Rate 68 68 Respiratory 17 17 16 Rate Blood Pressure 117/59 88/52 (mmHg) O2 Sat by Pulse 100 96 Oximetry 11/28/19 11/28/19 11/28/19 15:28 18:47 19:43 Temperature 97 F Pulse Rate 69 Respiratory 16 18 Rate Blood Pressure 88/46 100/48 (mmHg) O2 Sat by Pulse 100 Oximetry 11/28/19 11/29/19 23:12 03:03 Temperature 97 F 97.5 F Pulse Rate 68 68 Respiratory 16 16 Rate Blood Pressure 122/55 105/50 (mmHg) O2 Sat by Pulse 100 100 Oximetry - Intake and Output Intake and Output: Intake & Output 11/26/19 11/27/19 11/28/19 11/29/19 11:59 11:59 11:59 11:59 Intake Total 790 1010 Output Total 0 0 Balance 790 1010 Weight 149 lb 1.6 oz Intake: IV Fluids 100 50 Oral 690 960 Output: Urine 0 0 Other: # Bowel Movements 1 Estimated Stool Amount Small # Voids 2 ADLs: Meal Record Start: 11/27/19 10: 13 Freq: DAILY@0900,1400,1800 Status: Active Protocol: Created 11/27/19 10:13 System (Rec: 11/27/19 10:13 System [id number]) Document 11/27/19 14:00 [id number] (Rec: 11/27/19 14:14 [id number] TELE-C03) Document 11/27/19 17:57 [id number] (Rec: 11/27/19 17:57 [id number] TELE-C03) Document 11/28/19 09:00 [id number] (Rec: 11/28/19 10:26 [id number] TELE-C03) Document 11/28/19 13:41 [id number] (Rec: 11/28/19 13:41 [id number] TELE-C03) Document 11/28/19 18:00 [id number] (Rec: 11/28/19 18:29 [id number] TELE-C11) Intake and Output Start: 11/27/19 07: 34 Freq: Status: Active Protocol: Created 11/27/19 07:34 System (Rec: 11/27/19 07:34 System [id number]) Intake and Output Start: 11/27/19 10: 13 Freq: DAILY@0600,1400,2200 Status: Active Protocol: Created 11/27/19 10:13 System (Rec: 11/27/19 10:13 System [id number]-C10) Document 11/27/19 14:00 [id number] (Rec: 11/27/19 14:14 [id number] TELE-C03) Document 11/27/19 22:00 [id number] (Rec: 11/27/19 22:05 [id number] TELE-C03) Document 11/28/19 06:00 [id number] (Rec: 11/28/19 06:29 [id number] TELE-C09) Document 11/28/19 14:00 [id number] (Rec: 11/28/19 14:55 [id number] TELE-C03) Document 11/28/19 22:00 [id number] (Rec: 11/28/19 22:14 [id number] TELE-C06) Document 11/29/19 05:10 [id number] (Rec: 11/29/19 05:11 [id number] TELE-C09) - Physical Exam General Physical Exam Comment: Warm and well perfused, hemodynamically stable. General: No Cyanosis, No Anemia, No Jaundice, No Clubbing Lungs and Chest: Yes: Chest Expansion Full, Chest Expansion Symetrica, Percussion Note Resonant, Vessicular Breath Sounds. No: Crackles, Wheezes Heart Rate and Rhythm: Regular Additional Cardiovascular: Yes: Normal Heart Sounds. No: Heart Murmur, Pedal Edema Abdominal Exam: Yes: Soft, Bowel Sounds Present. No: Distention, Abdominal Tenderness - Neuro Orientation: A/O x3 Psychiatric: Normal Speech: Normal Results - Results Lab Results: Laboratory Results - last 24 hr 11/28/19 11/28/19 11/28/19 04:33 04:33 07:57 APTT Sodium 131 L Potassium 4.1 Chloride 99 L Carbon Dioxide 26 Anion Gap 6 BUN 19 Creatinine 0.75 Est GFR ( Amer) 119.8 Est GFR (Non-Af Amer) 99.0 BUN/Creatinine Ratio 25.3 H Glucose 137 H Calcium 8.8 Magnesium 1.8 L Troponin I 1.54 H* Triglycerides 51 Cholesterol 107 LDL Cholesterol 52 HDL Cholesterol 44.4 Blood Type B Positive Antibody Screen Negative 11/28/19 11/28/19 10:18 10:18 APTT 53.1 H Sodium Potassium Chloride Carbon Dioxide Anion Gap BUN Creatinine Est GFR ( Amer) Est GFR (Non-Af Amer) BUN/Creatinine Ratio Glucose Calcium Magnesium Troponin I 1.13 H* Triglycerides Cholesterol LDL Cholesterol HDL Cholesterol Blood Type Antibody Screen Other Results/Reports: Transthoracic echocardiogram Conclusions Summary: - Left ventricle: The cavity size is below normal. Wall thickness is mildly increased. Systolic function is moderately reduced. The estimated ejection fraction is 40-45%. Old inferior posterior RI. - Right ventricle: Systolic function is normal. - Mitral valve: There is mild regurgitation, directed posteriorly. - Aortic valve: The valve is trileaflet. The leaflets are mildly calcified. The findings are consistent with mild stenosis. There is mild regurgitation. The peak systolic velocity is 1.7 m/sec. The mean systolic gradient is 5.0 mm Hg. The LVOT to aortic valve VTI ratio is 0.35. The valve area by the mean velocity method is 1.3 cm^2. - Tricuspid valve: There is trace to mild regurgitation. - Pulmonary arteries: Systolic pressure is within the normal range. The peak pressure during systole by Doppler is 19.0 mm Hg. - Compared with prior echocardiogram of 06/10/19, posterior wall abnormality and ejection fraction unchanged, valve function is stable. Study data: Transthoracic echocardiogram. Procedure: Transthoracic echocardiography was performed. Image quality was fair. Complete 2D, spectral Doppler, and color flow Doppler. Location: Bedside. Patient status: Inpatient. Patient room number: 442-02. Rhythm: Paced rhythm. Findings Left ventricle: The cavity size is below normal. Wall thickness is mildly increased. There is a prominent basal septal knuckle. Systolic function is moderately reduced. The estimated ejection fraction is 40-45%. Mild diffuse hypokinesis. Regional wall motion abnormalities: Hypokinesis and akinesis of the basal-mid inferolateral and inferior myocardium. This wall is thinned and calcified c/w old RI. Doppler parameters are consistent with abnormal left ventricular relaxation (grade 1 diastolic dysfunction). Right ventricle: The cavity size is normal. Pacer wire noted in the right ventricle. Systolic function is normal. Ventricular septum: There is abnormal interventricular septal wall motion consistent with an RV pacemaker. Left atrium: The atrium is mildly dilated. Right atrium: The atrium is normal in size. Pacer wire noted in right atrium. Mitral valve: The Mitral valve annulus appears calcified. The leaflets are mildly thickened. There is no evidence of stenosis. There is mild regurgitation, directed posteriorly. Aortic valve: The valve is trileaflet. The leaflets are mildly calcified. Cusp separation is mildly reduced. The findings are consistent with mild stenosis. There is mild regurgitation. Tricuspid valve: The leaflets are normal thickness. There is no evidence of stenosis. There is trace to mild regurgitation. Pulmonic valve: The leaflets are normal thickness. There is no evidence of stenosis. There is trace regurgitation. Aorta: Aortic root: The aortic root is appears normal. Ascending aorta: The ascending aorta is appears normal. Aortic arch: The aortic arch is appears normal. Pericardium: There is no significant pericardial effusion. Patient Name: LISA ESTRELLA Medical Record#: [id number] Ordering Physician: Betsy Walker DO Acct.#: [id number] : 1935 Age: 83 Sex: M Location: [address] [place] [address] MEDICAL/TELEMETRY Exam Date: 11/27/19 ADM Status: ADM Betzy Order Information: NE MYOCARDIAL SINGLE STUDY Accession Number: [id number] CPT: 03603 HISTORY: CHEST PAIN COMPARISONS: October 25, 2017 TECHNIQUE: A resting myocardial perfusion study was performed. Gated SPECT imaging was performed, with CT-based attenuation correction. DOSE: Rest: Technetium 99m tetrofosmin, 25.6 millicuries, injected at November 27, 2019 at 11:20 AM FINDINGS: EF: 58% MOTION: Normal motion, with normal wall thickening. PERFUSION: There is photopenia of the inferior wall extending to the lateral wall. OTHER: None IMPRESSION: HYPOPERFUSION OF THE INFERIOR WALL EXTENDING TO THE LATERAL WALL, ON RESTING PERFUSION STUDY. THE DIFFERENTIAL INCLUDES ISCHEMIA VERSUS INFARCT. RECOMMEND CONSIDERATION OF STRESS IMAGING. <Electronically signed by Cr Hansen MD in [place]> 11/28/19946 Dictated By: Cr Hansen MD Dictated Date/Time: 11/28/19941 Transcribed Date/Time: 11/28/19941 Assessment - Problem List Assessment: Patient Problems Acute coronary syndrome (Acute) BPH (benign prostatic hyperplasia) (Chronic) Cardiac pacemaker (Chronic) Cardiomyopathy (Chronic) Chronic lymphocytic leukemia (CLL), B-cell (Chronic) Essential hypertension (Chronic) GERD (gastroesophageal reflux disease) (Chronic) History of coronary artery bypass graft (Chronic) History of coronary artery stent placement (Chronic) History of paroxysmal supraventricular tachycardia (Chronic) History of radiofrequency ablation (RFA) procedure for cardiac arrhythmia ( Chronic) Hypercholesterolemia (Chronic) Rheumatoid arthritis (Chronic) Sick sinus syndrome (Chronic) Sleep apnea (Chronic) Type 2 diabetes mellitus (Chronic) Plan: Acute coronary syndrome (Acute) His tropinin I levels have crested and his symptoms have abated. He is due for a cardiac catheterization and intervention today. Comorbidities: Essential hypertension (Chronic) His BP was low yesterday - IVF appears to have moderated this. Type 2 diabetes mellitus (Chronic) Well controlled Cardiac pacemaker (Chronic) functional Cardiomyopathy (Chronic) No signs of CHF Secondary diagnoses: BPH (benign prostatic hyperplasia) (Chronic) Chronic lymphocytic leukemia (CLL), B-cell (Chronic) GERD (gastroesophageal reflux disease) (Chronic) History of coronary artery bypass graft (Chronic) History of coronary artery stent placement (Chronic) History of paroxysmal supraventricular tachycardia (Chronic) History of radiofrequency ablation (RFA) procedure for cardiac arrhythmia ( Chronic) Hypercholesterolemia (Chronic) Rheumatoid arthritis (Chronic) Sick sinus syndrome (Chronic) Sleep apnea (Chronic) I discussed the above with Mr. Estrella and he agrees with the management plan.
[2019-11-29] MEDS: Multivitamins/Minerals TAB PO SCH (07:54)
[2019-11-29] MEDS: Ticagrelor* 90 MG TAB PO SCH ×2 (07:54→21:59)
[2019-11-29] MEDS: Aspirin 81 mg CHEW TAB* 81 MG TAB.CHEW PO SCH (07:55)
[2019-11-29] MEDS: Isosorbide Mononitrate ER TAB* 30 MG PO SCH (07:59)
[2019-11-29] MEDS: Metoprolol Succinate XL TAB* 50 MG PO SCH (07:59)
[2019-11-29] MEDS ORDERED: Lidocaine 1% INJ* 10 MG/ML 30 ML SDV ONE (08:52)
[2019-11-29] MEDS ORDERED: Heparin 2 UNITS/ML IVPREMIX* 2,000 ML IV ONE (08:52)
[2019-11-29] MEDS ORDERED: Midazolam* 1 MG/ML 5 ML VIAL (5 MG) ONE (08:53)
[2019-11-29] MEDS ORDERED: fentaNYL* 50 MCG/ML 2 ML VIAL (100 MCG VIAL) ONE (08:53)
[2019-11-29] MEDS ORDERED: Heparin(*) 1000 UNIT/ML 10 ML VIAL CATH LAB IV ONE (08:53)
[2019-11-29] MEDS ORDERED: Iohexol 350 (CONTRAST) 200 ML MDV IV ONE (08:55)
[2019-11-29 10:54] LABS: CRP High Sensitivity 1.23 mg/L (<2.00)
--- NOTE | 2019-11-29 12:12 | PN ---
Subjective Date of Service: 11/29/19 Interval History: f/u nstemi patient ambulated in room this AM prior to cardiac catheterization without symptoms images reviewed with Dr. Sandoval multiple potential small and difficult to access culprit possibilities none easily amenable to pci no dyspnea laying flat and family friend at bedside Medications Active Medications: Acetaminophen (Tylenol Tab*) 650 mg PO Q4H PRN PRN Reason: MILD PAIN or TEMP > 100.4 Last Admin: 11/28/19 21:01 Dose: 650 mg Aspirin (Aspirin 81 Mg Chew Tab*) 81 mg PO DAILY [facility] Last Admin: 11/29/19 07:55 Dose: 81 mg Atorvastatin Calcium (Lipitor*) 80 mg PO 2100 [facility] Last Admin: 11/28/19 21:01 Dose: 80 mg Sodium Chloride (Ns 0.9% 1000 Ml) 1,000 mls @ 100 mls/hr IV .per rate [facility] Stop: 11/29/19 12:44 Isosorbide Mononitrate (Imdur Er Tab*) 30 mg PO DAILY [facility] Last Admin: 11/29/19 07:59 Dose: 30 mg Metoprolol Succinate (Toprol Xl Tab*) 50 mg PO DAILY [facility] Last Admin: 11/29/19 07:59 Dose: 50 mg Multivitamins/Minerals (Theragran/Minerals Tab*) 1 tab PO DAILY [facility] Last Admin: 11/29/19 07:54 Dose: 1 tab Ticagrelor (Brilinta*) 90 mg PO BID [facility] Last Admin: 11/29/19 07:54 Dose: 90 mg Objective Vital Signs: Temp Pulse Resp BP Pulse Ox 97.2 F 57 16 86/58 99 11/29/19 11:48 11/29/19 11:48 11/29/19 11:48 11/29/19 11:48 11/29/19 11:48 Oxygen Devices in Use Now: None Appearance: laying flat, nad Eyes: No Scleral Icterus Ears/Nose/Mouth/Throat: Clear Oropharnyx Neck: NL Appearance and Movements; NL JVP Respiratory: Symmetrical Chest Expansion and Respiratory Effort, Clear to Auscultation Cardiovascular: NL Sounds; No Murmurs; No JVD, No Edema Abdominal: - - obese Extremities: No Edema, - - R groin no pain or swelling, bandage in place Skin: No Rash or Ulcers Neurological: Alert and Oriented x 3 Lines/Tubes/Other Access: Clean, Dry and Intact Peripheral IV Laboratory Results: 11/28/19 04:33 11/28/19 04:33 INR (Anticoag Therapy) 1.08 (0.82-1.09) 11/27/19 07:30 APTT 53.1 seconds (26.0-38.0) H 11/28/19 10:18 Total Bilirubin 0.60 mg/dL (0.2-1.0) 11/27/19 07:30 AST 20 U/L (13-39) 11/27/19 07:30 ALT 17 U/L (7-52) 11/27/19 07:30 Alkaline Phosphatase 46 U/L (34-104) 11/27/19 07:30 CK-MB (CK-2) 1.9 ng/mL (0.6-6.3) 11/27/19 07:30 B-Natriuretic Peptide 142 pg/mL (<=100) H 11/27/19 07:30 Total Protein 6.0 g/dL (6.4-8.9) L 11/27/19 07:30 Albumin 3.8 g/dL (3.2-5.2) 11/27/19 07:30 Globulin 2.2 g/dL (2-4) 11/27/19 07:30 Albumin/Globulin Ratio 1.7 (1-3) 11/27/19 07:30 Triglycerides 51 mg/dL 11/28/19 04:33 Cholesterol 107 mg/dL 11/28/19 04:33 LDL Cholesterol 52 mg/dL 11/28/19 04:33 HDL Cholesterol 44.4 mg/dL 11/28/19 04:33 11/27/19 11/27/19 11/27/19 07:30 10:30 14:46 Troponin I 0.01 0.07 H* 0.20 H* 11/27/19 11/27/19 11/28/19 19:54 22:41 01:43 Troponin I 0.74 H* 1.02 H* 1.24 H* 11/28/19 11/28/19 11/28/19 04:33 07:57 10:18 Troponin I 1.29 H* 1.54 H* 1.13 H* Diagnostic Imaging: ekg 11/28/2019 NSR 63 bpm, old inferior TX, 1/avl twi Transthoracic Echocardiogram 11/28/2019 - Left ventricle: The cavity size is below normal. Wall thickness is mildly increased. Systolic function is moderately reduced. The estimated ejection fraction is 40-45%. Old inferior posterior TX. - Right ventricle: Systolic function is normal. - Mitral valve: There is mild regurgitation - Aortic valve:e findings are consistent with mild stenosis. Assessment/Plan NSTEMI - enzymatically small - clinically stable - medical management - Continue current medical management would use DAPT for at least 6 months - Home ramipril held, BP lower currently with addition of imdur, can be re- evaluated - ambulate later today and tomorrow and if does well could be discharged tomorrow 11/30/2019 from a cardiac standpoint
[2019-11-29] MEDS: Atorvastatin* 80 MG TAB PO SCH (21:59)
[2019-11-29] MEDS: Acetaminophen TAB* 325 MG PO PRN (23:20)
--- NOTE | 2019-11-30 00:57 | CATH ---
CC: Dr. Madhu Houston; Dr. Morris* CATH REPORT: DATE OF PROCEDURE: 11/29/19 PRIMARY CARE PHYSICIAN: Dr. Madhu Houston. SUPERVISOR WOUND: Dr. Morris. HISTORY: An 83-year-old male with remote bypass grafting, referred for coronary angiography for non-ST elevation infarct. He underwent bypass in 1995 with a KLEIN to the LAD, sequential vein graft to diagonal, OM, OM, RPDA. Catheterization in 2000 reported EF of 45% with an inferior wall motion abnormality, occlusion of the distal part of the vein graft although exact occlusion point was not specified. Mild left main stenosis , patent KLEIN, occluded proximal LAD with 70% diagonal stenosis, high-grade proximal circumflex stenosis with moderate more distal circumflex stenosis and 75% RCA stenosis and occlusion of the RPDA. In 2010, he had an inferoposterior infarct, underwent catheterization here with percutaneous revascularization of the culprit RCA occlusion with a 3 x 16 and 2.5 x 15 bare metal stent. In 2018 , he had a large fixed inferior wall defect on imaging. EF 43%. He presented with nocturnal chest pain without ST changes beyond his baseline inferior infarct with very mild ST elevation. PROCEDURE ACCESS: Right common femoral artery sheath 6.5 [place]. MEDICATIONS: 1. Subcutaneous lidocaine. 2. IV Versed. 3. IV fentanyl. DIAGNOSTIC CATHETERS: 6F IM, 6F MP, 6FL 3.5. HEMODYNAMICS: AO 90/44. ANGIOGRAPHY: Right common femoral artery: Sheath entry is in segment 2, there is no stenosis. Bifurcation is distal. KLEIN: The PALOMO is moderate, inserts into the mid LAD without insertion stenosis , fills it antegrade past the apex as well as retrograde to an area of competitive flow. There is no insertion stenosis. RCA: The RCA is [id number]. The previously placed mid RCA stents have very minimal intimal hyperplasia but no significant stenosis, the PDA is very small, has a proximal fairly short 80% stenosis, unchanged from 2011. Beyond the stenosis, there is a hair-sized residual atretic graft that fills retrograde to the very distal small circumflex posterolateral branch. RPDA reference diameter is less than 2 mm. Saphenous vein graft: It arises from the left side of the aorta between 2 clip markers, the graft is large, smooth, inserts [id number] into the first diagonal. The first diagonal fills antegrade to the apex to its end, there is no insertion stenosis. It fills retrograde back to a more proximal moderate diagonal branch. Between the 2 diagonals, there are several areas of stenosis up to 80%. At the origin of the first diagonal, the LAD has an 80% to 90% stenosis, percutaneous revascularization of this area would be very challenging because it would require retrograde access from the diagonal up the LAD and then steep angulated turn into the first diagonal. That area was not well seen in 2011, so I cannot comment on whether this is a new diagonal stenosis or not. After the diagonal, the vein graft continues, inserts [id number] into the first marginal without insertion stenosis, fills it antegrade as well as retrograde. The retrograde portion now has moderate tubular stenosis compared to 2011. The circumflex is now occluded distal to the grafted marginal without any distal filling. The area now fills by right to left collaterals as above. The SVG is occluded beyond OM as before. The very distal SVG segment from CxPL to RPDA is atretic, fills retrograde from RPDA. Left Main: The left main is relatively short, has tubular approximately 40% stenosis. LAD: The LAD is occluded a Millimeter past the origin, distally fills via the diagonal vein graft and the KLEIN. Circumflex: The circumflex is not dominant, it is moderate, has a 90% proximal stenosis before it reconstitutes. Just beyond the reconstitution, there is competitive flow from a retrograde fill from the grafted marginal. The previously visualized very small posterolateral from 2011 now is occluded, it fills via the collateral from the RPDA as above. CONCLUSION: 1. Unchanged bypass graft anatomy since 2011. He has had progression of disease in the [place] proximal grafted marginal branch, which now has moderate tubular stenosis. He also has occluded the circumflex mid portion isolating a small posterolateral, which is collateralized from the RCA, Cx Pl is the presumed culprit. He has a significant proximal PDA stenosis in a very small caliber PDA, not suitable for revascularization which is unchanged from 2011. The proximal LAD stenosis involving the high first diagonal branch is of unknown age as it was not outlined in the 2011 cath. 2. He will be continued with medical management for ACS. 3. Successful right common femoral artery closure with Angio-Seal. [id number]/[facility] #: [id number] [facility]
[2019-11-30 06:29] LABS: ABS Eosinophils 0.1 10^3/ul (0-0.6); ABS Lymphocytes 1.7 10^3/ul (1.0-4.8); ABS Monocytes 0.5 10^3/ul (0-0.8); ABS Neutrophils 2.6 10^3/ul (1.5-7.7); Eosinophil % 2.2 %; Hematocrit 41 % (42-52); Lymphocyte % 33.8 %; Mean Corpuscular HGB Conc 34 g/dL (31-36); Mean Corpuscular Hemoglobin 31 pg (27-31); Mean Corpuscular Volume 90 fL (80-94); Mean Platelet Volume 8.3 fL (7.4-10.4); Nucleated Red Blood Cells % 0.1; Platelet Count 133 10^3/uL (150-450); Red Blood Count 4.54 10^6 /uL (4.18-5.48); Red Cell Distribution Width 14 % (10-15); White Blood Count 4.9 10^3/uL (3.5-10.8)
[2019-11-30 06:31] LABS: BUN/Creatinine Ratio 24.3 (8-20); Calcium 8.7 mg/dL (8.6-10.3); EGFR African American 129.7 (>60); EGFR Non-African American 107.2 (>60); Potassium 4.1 mmol/L (3.5-5.0)
[2019-11-30 07:14] LABS: Troponin I 0.71 ng/mL (<0.03)
--- NOTE | 2019-11-30 07:15 | PN ---
Subjective - Subjective Reason for Note: Progress Note History: Mr. Culver tolerated the coronary angiogram yesterday. I discussed the outcome with Dr. Sandoval and reviewed his procedure note. The initial chest pain he experienced with this acute coronary syndrome was central chest pain/pressure. However, it slowly migrated to the left side of his chest. It then went away. He has had the onset again of left sided chest discomfort this morning. He states this is not an unusual pain for him and wonders if it is musculoskeletal. He has some longstanding discomfort in the area of his pacemaker placement. He notes that today he has felt this sensation on the left side of his neck and upper arm. He has no other associated symptoms - nausea, diaphoresis, dyspnea, palpitations. Otherwise, he is feeling well. Active Problems: Active Problems Acute coronary syndrome (Acute) I24.9 BPH (benign prostatic hyperplasia) (Chronic) N40.0 Cardiac pacemaker (Chronic) Z95.0 Cardiomyopathy (Chronic) I42.9 Chronic lymphocytic leukemia (CLL), B-cell (Chronic) C91.10 Essential hypertension (Chronic) I10 GERD (gastroesophageal reflux disease) (Chronic) K21.9 History of coronary artery bypass graft (Chronic) History of coronary artery stent placement (Chronic) Z95.5 History of paroxysmal supraventricular tachycardia (Chronic) Z86.79 History of radiofrequency ablation (RFA) procedure for cardiac arrhythmia ( Chronic) Z98.890 Hypercholesterolemia (Chronic) E78.00 Rheumatoid arthritis (Chronic) M06.9 Sick sinus syndrome (Chronic) I49.5 Sleep apnea (Chronic) G47.30 Type 2 diabetes mellitus (Chronic) Current Medications: Current Medications Acetaminophen (Tylenol Tab*) 650 mg PO Q4H PRN PRN Reason: MILD PAIN or TEMP > 100.4 Last Admin: 11/29/19 23:20 Dose: 650 mg Aspirin (Aspirin 81 Mg Chew Tab*) 81 mg PO DAILY [facility] Last Admin: 11/29/19 07:55 Dose: 81 mg Atorvastatin Calcium (Lipitor*) 80 mg PO 2100 [facility] Last Admin: 11/29/19 21:59 Dose: 80 mg Isosorbide Mononitrate (Imdur Er Tab*) 30 mg PO DAILY [facility] Last Admin: 11/29/19 07:59 Dose: 30 mg Metoprolol Succinate (Toprol Xl Tab*) 50 mg PO DAILY [facility] Last Admin: 11/29/19 07:59 Dose: 50 mg Multivitamins/Minerals (Theragran/Minerals Tab*) 1 tab PO DAILY [facility] Last Admin: 11/29/19 07:54 Dose: 1 tab Ticagrelor (Brilinta*) 90 mg PO BID [facility] Last Admin: 11/29/19 21:59 Dose: 90 mg Home Medications: Home Medications Medication Instructions Recorded Confirmed Type Metoprolol Succinate XL TAB* 50 mg PO DAILY 04/29/17 11/27/19 History [Toprol XL TAB*] [place]-3 Fatty Acids (Nf) [Fish Oil 1,000 mg PO BID 04/29/17 11/27/19 History (NF)] Ramipril CAP* [Altace CAP*] 2.5 mg PO BEDTIME 04/29/17 11/27/19 History Simvastatin (NF) [Zocor (NF)] 20 mg PO DAILY 04/29/17 11/27/19 History Aspirin 81 mg PO DAILY 04/06/19 11/27/19 History Alendronate (NF) [Fosamax (NF)] 70 mg PO WEEKLY 11/27/19 11/27/19 History Calcium Carb, Citrate/Vit D3 1 each PO DAILY 11/27/19 11/27/19 History [Calcium + D3 ER Tablet] Multivitamins/Minerals TAB* 1 tab PO DAILY 11/27/19 11/27/19 History [Theragran/minerals TAB*] Nitroglycerin TAB 0.4 MG* 0.4 mg SL Q5M PRN 11/27/19 11/27/19 History Ramipril CAP* [Altace CAP*] 5 mg PO QAM 11/27/19 11/27/19 History Triamcinolone 0.1% CREAM(NF) 1 applic TOPICAL BEDTIME PRN 11/27/19 11/27/19 History [Kenalog 0.1% Cream (NF)] Allergies: Allergies Allergy/AdvReac Type Severity Reaction Status Date / Time codeine Allergy Tachycardia Verified 11/27/19 07:36 latex Allergy Hives Verified 11/27/19 07:36 pseudoephedrine Allergy Palpitation Verified 11/27/19 07:36 s Objective - Vital Signs Vital Signs: Vital Signs 11/29/19 11/29/19 11/29/19 07:15 07:53 07:55 Temperature 97 F Pulse Rate 71 Respiratory 16 16 16 Rate Blood Pressure 136/56 (mmHg) O2 Sat by Pulse 100 Oximetry 11/29/19 11/29/19 11/29/19 08:00 10:16 10:33 Temperature 97 F 97 F Pulse Rate 64 57 Respiratory 16 14 14 Rate Blood Pressure 104/48 97/51 (mmHg) O2 Sat by Pulse 97 97 Oximetry 11/29/19 11/29/19 11/29/19 10:48 11:48 12:18 Temperature 97.1 F 97.2 F 97.2 F Pulse Rate 63 57 61 Respiratory 14 16 16 Rate Blood Pressure 98/47 86/58 91/45 (mmHg) O2 Sat by Pulse 98 99 99 Oximetry 11/29/19 11/29/19 11/29/19 13:18 15:18 20:00 Temperature 97.3 F 97.4 F 97.8 F Pulse Rate 70 69 63 Respiratory 16 16 16 Rate Blood Pressure 90/44 104/47 99/46 (mmHg) O2 Sat by Pulse 100 100 100 Oximetry 11/29/19 11/29/19 11/30/19 23:37 23:55 03:07 Temperature 97.7 F 97.5 F Pulse Rate 84 72 Respiratory 16 16 16 Rate Blood Pressure 126/61 134/61 (mmHg) O2 Sat by Pulse 100 99 Oximetry - Intake and Output Intake and Output: Intake & Output 11/27/19 11/28/19 11/29/19 11/30/19 11:59 11:59 11:59 11:59 Intake Total 790 1010 935 Output Total 0 0 0 Balance 790 1010 935 Weight 149 lb 1.6 oz Intake: IV Fluids 100 50 215 NS (0.9%) 215 Oral 690 960 720 Output: Urine 0 0 0 Other: # Bowel Movements 1 Estimated Stool Amount Small # Voids 2 ADLs: Meal Record Start: 11/27/19 10: 13 Freq: DAILY@0900,1400,1800 Status: Active Protocol: Created 11/27/19 10:13 System (Rec: 11/27/19 10:13 System [email or web address]) Document 11/27/19 14:00 (Rec: 11/27/19 14:14 [email or web address]) Document 11/27/19 17:57 [id number] (Rec: 11/27/19 17:57 [id number] TELE-C03) Document 11/28/19 09:00 [id number] (Rec: 11/28/19 10:26 [id number] TELE-C03) Document 11/28/19 13:41 [id number] (Rec: 11/28/19 13:41 [id number] TELE-C03) Document 11/28/19 18:00 [id number] (Rec: 11/28/19 18:29 [id number] TELE-C11) Document 11/29/19 14:00 [id number] (Rec: 11/29/19 14:14 [id number] TELE-C03) Document 11/29/19 18:00 [id number] (Rec: 11/29/19 18:28 [id number] TELE-C03) Intake and Output Start: 11/27/19 07: 34 Freq: Status: Active Protocol: Created 11/27/19 07:34 System (Rec: 11/27/19 07:34 System [id number]) Intake and Output Start: 11/27/19 10: 13 Freq: DAILY@0600,1400,2200 Status: Active Protocol: Created 11/27/19 10:13 System (Rec: 11/27/19 10:13 System [email or web address]-C10) Document 11/27/19 14:00 [id number] (Rec: 11/27/19 14:14 [id number] TELE-C03) Document 11/27/19 22:00 [id number] (Rec: 11/27/19 22:05 [id number] TELE-C03) Document 11/28/19 06:00 [id number] (Rec: 11/28/19 06:29 [id number] TELE-C09) Document 11/28/19 14:00 [id number] (Rec: 11/28/19 14:55 [id number] TELE-C03) Document 11/28/19 22:00 [id number] (Rec: 11/28/19 22:14 [id number] TELE-C06) Document 11/29/19 05:10 [id number] (Rec: 11/29/19 05:11 [id number] TELE-C09) Document 11/29/19 14:00 [id number] (Rec: 11/29/19 14:24 [id number] TELE-C03) Document 11/29/19 22:00 [id number] (Rec: 11/30/19 02:43 [id number] TELE-C09) Document 11/30/19 06:00 [id number] (Rec: 11/30/19 06:21 [id number] TELE-C13) - Physical Exam General Physical Exam Comment: Warm and well perfused - in no acute distress. He is hemodynamically stable. General: No Cyanosis, No Anemia, No Jaundice, No Clubbing Lungs and Chest: Yes: Chest Expansion Full, Chest Expansion Symetrica, Percussion Note Resonant, Vessicular Breath Sounds. No: Crackles, Wheezes, Respiratory Distress, Use of Accessory Muscles Heart Rate and Rhythm: Regular Additional Cardiovascular: Yes: Normal Heart Sounds. No: Heart Murmur, Pedal Edema Abdominal Exam: Yes: Soft, Bowel Sounds Present. No: Distention, Abdominal Tenderness Results - Results Lab Results: Laboratory Results - last 24 hr 11/27/19 11/30/19 11/30/19 07:30 05:52 05:52 WBC 4.9 RBC 4.54 Hgb 14.0 Hct 41 L MCV 90 MCH 31 MCHC 34 RDW 14 Plt Count 133 L MPV 8.3 Neut % (Auto) 52.7 Lymph % (Auto) 33.8 [place] % (Auto) 10.9 Eos % (Auto) 2.2 Baso % (Auto) 0.4 Absolute Neuts (auto) 2.6 Absolute Lymphs (auto) 1.7 Absolute Monos (auto) 0.5 Absolute Eos (auto) 0.1 Absolute Basos (auto) 0.0 Absolute Nucleated RBC 0.0 Nucleated RBC % 0.1 Sodium 133 L 127 L Potassium 4.2 4.1 Chloride 98 L 100 L Carbon Dioxide 30 21 L Anion Gap 5 6 BUN 20 17 Creatinine 0.83 0.70 Est GFR ( Amer) 106.5 129.7 Est GFR (Non-Af Amer) 88.1 107.2 BUN/Creatinine Ratio 24.1 H 24.3 H Glucose 111 H 98 Calcium 9.8 8.7 Magnesium 1.7 L Total Bilirubin 0.60 AST 20 ALT 17 Alkaline Phosphatase 46 Total Creatine Kinase 73 CK-MB (CK-2) 1.9 Troponin I 0.01 C-React Prot High Sens 1.23 Total Protein 6.0 L Albumin 3.8 Globulin 2.2 Albumin/Globulin Ratio 1.7 LDL Cholesterol Direct 55 Other Results/Reports: Cardiac Catheterization: CONCLUSION: 1. Unchanged bypass graft anatomy since 2011. He has had progression of disease in the [place]vas[place] proximal grafted marginal branch, which now has moderate tubular stenosis. He also has occluded the circumflex mid portion isolating a small posterolateral, which is collateralized from the RCA which is the presumed culprit. He has a significant proximal PDA stenosis in a very small caliber PDA, not suitable for revascularization which is unchanged from 2011. The proximal LAD stenosis isolating the high first diagonal branch is of unknown age as it was not outlined in the 2011 cath. 2. He will be continued with medical management for ACS. 3. Successful right common femoral artery closure with Angio-Seal. [id number]/[facility] #: [id number] Ida Sandoval MD Assessment - Problem List Assessment: Patient Problems Acute coronary syndrome (Acute) BPH (benign prostatic hyperplasia) (Chronic) Cardiac pacemaker (Chronic) Cardiomyopathy (Chronic) Chronic lymphocytic leukemia (CLL), B-cell (Chronic) Essential hypertension (Chronic) GERD (gastroesophageal reflux disease) (Chronic) History of coronary artery bypass graft (Chronic) History of coronary artery stent placement (Chronic) History of paroxysmal supraventricular tachycardia (Chronic) History of radiofrequency ablation (RFA) procedure for cardiac arrhythmia ( Chronic) Hypercholesterolemia (Chronic) Rheumatoid arthritis (Chronic) Sick sinus syndrome (Chronic) Sleep apnea (Chronic) Type 2 diabetes mellitus (Chronic) Plan: Acute coronary syndrome (Acute) Dr. Sandoval notes that he has occluded the mid- portion of his circumflex coronary artery and that distally this is filled by collaterals. He thinks this is the culprit lesion. This morning he has chest discomfort that is different from the central chest pain with which he presented and a familiar pain to him. His troponin I level is 0.71. However, I will follow him in the hospital for another 24 hours. He is starting a dual antiplatelet regimen Comorbidities: Type 2 diabetes mellitus (Chronic) Stable Hypercholesterolemia (Chronic) He is now on higher intensity statin regimen Secondary diagnoses: BPH (benign prostatic hyperplasia) (Chronic) Cardiac pacemaker (Chronic) Cardiomyopathy (Chronic) Chronic lymphocytic leukemia (CLL), B-cell (Chronic) Essential hypertension (Chronic) GERD (gastroesophageal reflux disease) (Chronic) History of coronary artery bypass graft (Chronic) History of coronary artery stent placement (Chronic) History of paroxysmal supraventricular tachycardia (Chronic) History of radiofrequency ablation (RFA) procedure for cardiac arrhythmia ( Chronic) Rheumatoid arthritis (Chronic) Sick sinus syndrome (Chronic) Sleep apnea (Chronic) I discussed the above with Hillary Culver and then called Estella Culver and informed her as well. They agree with the management plan
[2019-11-30] MEDS: Ticagrelor* 90 MG TAB PO SCH ×2 (08:17→20:20)
[2019-11-30] MEDS: Multivitamins/Minerals TAB PO SCH (08:18)
[2019-11-30] MEDS: Metoprolol Succinate XL TAB* 50 MG PO SCH (08:19)
[2019-11-30] MEDS: Aspirin 81 mg CHEW TAB* 81 MG TAB.CHEW PO SCH (08:19)
[2019-11-30] MEDS: Isosorbide Mononitrate ER TAB* 30 MG PO SCH (08:19)
--- NOTE | 2019-11-30 09:26 | PN ---
Subjective Date of Service: 11/30/19 Interval History: f/u nstemi has shoulder and neck discomfort on left not similar to presenting angina but still very concerning to him no groin pain or dyspnea tele no arrhythmias Medications Active Medications: Acetaminophen (Tylenol Tab*) 650 mg PO Q4H PRN PRN Reason: MILD PAIN or TEMP > 100.4 Last Admin: 11/29/19 23:20 Dose: 650 mg Aspirin (Aspirin 81 Mg Chew Tab*) 81 mg PO DAILY [facility] Last Admin: 11/30/19 08:19 Dose: 81 mg Atorvastatin Calcium (Lipitor*) 80 mg PO 2100 [facility] Last Admin: 11/29/19 21:59 Dose: 80 mg Isosorbide Mononitrate (Imdur Er Tab*) 30 mg PO DAILY [facility] Last Admin: 11/30/19 08:19 Dose: 30 mg Metoprolol Succinate (Toprol Xl Tab*) 50 mg PO DAILY [facility] Last Admin: 11/30/19 08:19 Dose: 50 mg Multivitamins/Minerals (Theragran/Minerals Tab*) 1 tab PO DAILY [facility] Last Admin: 11/30/19 08:18 Dose: 1 tab Ticagrelor (Brilinta*) 90 mg PO BID [facility] Last Admin: 11/30/19 08:17 Dose: 90 mg Objective Vital Signs: Temp Pulse Resp BP Pulse Ox 98.1 F 66 16 130/57 99 11/30/19 07:34 11/30/19 07:34 11/30/19 07:34 11/30/19 07:34 11/30/19 07:34 Oxygen Devices in Use Now: None Appearance: nad, pleasant Eyes: No Scleral Icterus Ears/Nose/Mouth/Throat: Clear Oropharnyx Respiratory: Symmetrical Chest Expansion and Respiratory Effort, Clear to Auscultation Cardiovascular: NL Sounds; No Murmurs; No JVD, RRR, No Edema, - - pacemaker site intact Abdominal: NL Sounds; No Tenderness; No Distention, - Extremities: No Edema, - - R groin no pain or swelling or swelling, bandage in place Skin: No Rash or Ulcers Neurological: Alert and Oriented x 3 Lines/Tubes/Other Access: Clean, Dry and Intact Peripheral IV Laboratory Results: 11/30/19 05:52 11/30/19 05:52 INR (Anticoag Therapy) 1.08 (0.82-1.09) 11/27/19 07:30 APTT 53.1 seconds (26.0-38.0) H 11/28/19 10:18 Total Bilirubin 0.60 mg/dL (0.2-1.0) 11/27/19 07:30 AST 20 U/L (13-39) 11/27/19 07:30 ALT 17 U/L (7-52) 11/27/19 07:30 Alkaline Phosphatase 46 U/L (34-104) 11/27/19 07:30 CK-MB (CK-2) 1.9 ng/mL (0.6-6.3) 11/27/19 07:30 B-Natriuretic Peptide 142 pg/mL (<=100) H 11/27/19 07:30 Total Protein 6.0 g/dL (6.4-8.9) L 11/27/19 07:30 Albumin 3.8 g/dL (3.2-5.2) 11/27/19 07:30 Globulin 2.2 g/dL (2-4) 11/27/19 07:30 Albumin/Globulin Ratio 1.7 (1-3) 11/27/19 07:30 Triglycerides 51 mg/dL 11/28/19 04:33 Cholesterol 107 mg/dL 11/28/19 04:33 LDL Cholesterol 52 mg/dL 11/28/19 04:33 HDL Cholesterol 44.4 mg/dL 11/28/19 04:33 11/27/19 11/27/19 11/27/19 07:30 10:30 14:46 Troponin I 0.01 0.07 H* 0.20 H* 11/27/19 11/27/19 11/28/19 19:54 22:41 01:43 Troponin I 0.74 H* 1.02 H* 1.24 H* 11/28/19 11/28/19 11/28/19 04:33 07:57 10:18 Troponin I 1.29 H* 1.54 H* 1.13 H* 11/30/19 05:47 Troponin I 0.71 H* Diagnostic Imaging: ekg 11/28/2019 NSR 63 bpm, old inferior TN, 1/avl twi Transthoracic Echocardiogram 11/28/2019 - Left ventricle: The cavity size is below normal. Wall thickness is mildly increased. Systolic function is moderately reduced. The estimated ejection fraction is 40-45%. Old inferior posterior TN. - Right ventricle: Systolic function is normal. - Mitral valve: There is mild regurgitation - Aortic valve:e findings are consistent with mild stenosis. Assessment/Plan NSTEMI - enzymatically small - clinically stable - multiple small vessel potential causes none easily amenable to PCI. Continue medical management Pacemaker - Continue current medical management would use DAPT for at least 6 months - Home ramipril held, can restart whenever BP ok - Treadmill today (ordered) to try to see if angina is provoked
[2019-11-30] MEDS: Atorvastatin* 80 MG TAB PO SCH (20:20)
[2019-11-30] MEDS: Acetaminophen TAB* 325 MG PO PRN (22:39)
[2019-12-01] MEDS: Isosorbide Mononitrate ER TAB* 30 MG PO SCH (09:04)
[2019-12-01] MEDS: Aspirin 81 mg CHEW TAB* 81 MG TAB.CHEW PO SCH (09:04)
[2019-12-01] MEDS: Ticagrelor* 90 MG TAB PO SCH (09:04)
[2019-12-01] MEDS: Metoprolol Succinate XL TAB* 50 MG PO SCH (09:04)
[2019-12-01] MEDS: Multivitamins/Minerals TAB PO SCH (09:05)
[2019-12-01 12:15] VITALS: BP 86/55
--- NOTE | 2019-12-01 23:47 | DS ---
CC: Dr. Houston; Dr. Morris DISCHARGE SUMMARY: DATE OF ADMISSION: 11/28/19 DATE OF DISCHARGE: 12/01/19 DISCHARGE DIAGNOSES: 1. Acute coronary syndrome/non-ST elevation myocardial infarction. 2. Hyperlipidemia. 3. Ischemic cardiomyopathy. 4. History of myocardial infarction status post stent placements last in 2010, CABG in 1996. 5. Hypertension. 6. History of paroxysmal ventricular tachycardia, status post pacemaker for tachybrady syndrome. 7. Left musculoskeletal chest pain. 8. Allergies to CODEINE, SUDAFED and LATEX. 9. Osteopenia. 10. Mild thrombocytopenia. 11. Mild aortic stenosis. HISTORY: The patient is an 83-year-old man admitted with chest pain. Please see the dictated admission note for details of the present illness, past medical history, family history, social and personal history, review of systems , and physical examination. LABORATORY DATA: CBC: On admission WBC 5.1, H and H 30.9/41, MCV 91, PLT 148, 000. CBC remained essentially unchanged. INR/PTT normal on 11/27/19. PTT 553.1 on 11/28/19. Chemistries on admission: Sodium 133, potassium 4.2, chloride 98, CO2 30, BUN/creatinine 20/0.83, glucose 111, lactic acid 1, magnesium 1.7. Rest of his comprehensive metabolic panel was essentially within normal limits. LDL direct was 55. BNP 142. Serial troponin 0.01, 0.07 , 0.20, 0.74, 1.02, 1.24, 1.29, 1.54, 1.13, which peaked to 10.18 on 11/28/19 and was down to 0.71 on 11/30/19. Blood type was B positive. IMAGING: Chest x-ray on 11/27/19 showed no active cardiopulmonary disease. Nuclear medicine scan showed hypoperfusion of the inferior wall extending to the lateral wall and resting perfusion study, differential including ischemia versus infarct. Transthoracic echocardiogram 11/28/19 showed cavity size below normal, mildly increased wall thickness. EF 40% to 45% with old inferior posterior RI. Mild mitral regurgitation. Mild calcification of the aortic valve consistent with mild stenosis, mild regurgitation. Ubild-lb-iluc tricuspid regurgitation. Unchanged since 06/10/19 echo. EKG on 11/27/19 showed sinus or ectopic atrial rhythm, abnormal R-wave progression with early transition, old inferior infarct, indeterminant age lateral infarct. EKG on 11/27/19, later in day showed first degree AV block, old inferior RI. EKG evening 11/27/19 showed atrial paced rhythm with inferior infarct, abnormal lateral Q waves, first degree AV block. EKG on 11/28/19 showed no significant changes except palpable normal sinus rhythm, replaced paced rhythm. Repeat EKG on 11/28/19 showed atrial paced versus normal sinus rhythm, old inferior RI, T-wave inversions I and aVL. EKG on 11/30/19 showed no significant change. Cardiac catheterization 11/29/19 showed unchanged bypass graft anatomy since 2011. Progression of disease in the barrow proximal graft and marginal branch with moderate tubular stenosis now. He also had occluded circumflex mid portion isolating a small posterolateral, which is collateralized from the right coronary artery. Presumed culprit was felt to be circumflex artery. He had a significant proximal PDA stenosis in a very small caliber PDA, not suitable for revascularization, which is unchanged from 2011. He had a proximal LAD stenosis involving the high first diagonal branch of unknown age as it was not outlined in the 2011 cath. HOSPITAL COURSE: The patient was admitted to rule out acute coronary syndrome. Troponins did rise suggesting a non-ST elevation RI. He was continued on his usual medications. He was a full code. DVT prophylaxis was with Lovenox subcu. Dr. Gage did a cardiac consultation. He initially recommended nuclear stress test and then decided to go to heart catheterization first instead. He was placed on nitroglycerin paste. His chest pain resolved. He had intermittent, very mild low level substernal pain during his hospitalization as well as left chest pain felt to be musculoskeletal. He was subsequently put on Imdur and rhona inhibitor was held. On 11/29/19, he had the catheterization. There were no lesions amenable to stenting. It was felt medical management was indicated. He had a stress test on 11/30/19. During the stress test, he had no further episodes of chest discomfort. He had left shoulder area discomfort that was not changed with exercise. He had no ST changes. It was noted on 12/01/19 prior to discharge that he had been getting Imdur in the morning and dropping his systolic blood pressure into the 80s late morning. Discussed with Dr. Thomson who recommended switching him back to ramipril as well as changing him from simvastatin to atorvastatin and adding Brilinta as his discharge medications. MEDICATIONS: At the time of discharge, he is to be on the following medications. 1. Brilinta 90 mg twice a day 2. Atorvastatin 80 mg once a day. 3. Ramipril 5 mg in the morning, 2.5 mg at bedtime. 4. Metoprolol 50 mg daily. 5. Aspirin 81 mg daily. 6. Multivitamin 1 daily. 7. Nitroglycerin 0.4 mg q.5 minutes p.r.n. 8. Triamcinolone cream 1 application at bedtime as needed. 9. Alendronate 70 mg weekly. 10. Calcium plus D3 one daily. FOLLOWUP: Followup will be with Cardiology with regards to his catheterization. They will be calling him and he should see Dr. Houston in 4 to 7 days. He is being discharged home in improved condition. DIET: Mediterranean plant based diet. ACTIVITY: As tolerated. Of note, he had no ST changes on his stress test. [id number]/[facility] #: [id number] JACQUELINE
== END 2019-12-01 14:30 | disposition home or self-care (01) | DRG 281 ==
LOC: ED 07:27 → MEDTELE 09:44 → OBSVTOIN 11-28 09:00
PROVIDERS: ADMIT Hospitalist; ATTEND Internal Medicine Geriatric Medicine
PROC: 5A09357 Assistance with Respiratory Ventilation, Less than 24 Consecutive Hours, Continuous Positive Airway Pressure (ICD-10-PCS; 2019-11-28)
PROC: B2121ZZ Fluoroscopy of Single Coronary Artery Bypass Graft using Low Osmolar Contrast (ICD-10-PCS; 2019-11-29)
PROC: B2181ZZ Fluoroscopy of Left Internal Mammary Bypass Graft using Low Osmolar Contrast (ICD-10-PCS; 2019-11-29)
PROC: B2111ZZ Fluoroscopy of Multiple Coronary Arteries using Low Osmolar Contrast (ICD-10-PCS; principal; 2019-11-29 08:45)
DX: I21.4 Non-ST elevation (NSTEMI) myocardial infarction (principal); I50.22 Chronic systolic (congestive) heart failure; E11.9 Type 2 diabetes mellitus without complications; G47.30 Sleep apnea, unspecified; I25.10 Atherosclerotic heart disease of native coronary artery without angina pectoris; E78.5 Hyperlipidemia, unspecified; I25.5 Ischemic cardiomyopathy; I49.5 Sick sinus syndrome; D69.6 Thrombocytopenia, unspecified; M85.80 Other specified disorders of bone density and structure, unspecified site; N40.0 Benign prostatic hyperplasia without lower urinary tract symptoms; E78.00 Pure hypercholesterolemia, unspecified; M06.9 Rheumatoid arthritis, unspecified; I44.0 Atrioventricular block, first degree; I08.3 Combined rheumatic disorders of mitral, aortic and tricuspid valves; I11.0 Hypertensive heart disease with heart failure; K21.9 Gastro-esophageal reflux disease without esophagitis; M19.90 Unspecified osteoarthritis, unspecified site; Z88.5 Allergy status to narcotic agent; Z92.21 Personal history of antineoplastic chemotherapy; Z92.3 Personal history of irradiation; Z91.040 Latex allergy status; Z88.8 Allergy status to other drugs, medicaments and biological substances; I25.2 Old myocardial infarction; Z95.0 Presence of cardiac pacemaker; Z98.42 Cataract extraction status, left eye; Z98.41 Cataract extraction status, right eye; Z95.1 Presence of aortocoronary bypass graft; Z95.5 Presence of coronary angioplasty implant and graft; Z79.82 Long term (current) use of aspirin; Z79.899 Other long term (current) drug therapy; Z79.02 Long term (current) use of antithrombotics/antiplatelets
CPT/HCPCS: 36415; 71045; 78451; 80048; 80053; 80061; 82550; 82553; 83605; 83721; 83735; 83880; 84484; 85025; 85610; 85730; 86141; 86850; 86900; 86901; 93005; 93017; 93306; 93455; 94660; 99156; 99157; 99284; A9270-GY; A9502; C1760; C1887; G0378; J1644; J1650; J2250; J3010; J3475